=== PATIENT | male | born 1940 | race Caucasian/White ===

== ENCOUNTER 2018-10-07 02:26 | Inpatient (IN) | payer MEDICARE ==
[~2018-10-07] VITALS: Ht 180.3 cm; Wt 90.7 kg
[2018-10-07] VITALS (7 sets, daily range): BP systolic 126–143; BP diastolic 74–83; Ht 180.3 cm; Wt 90.7 kg
[2018-10-07 03:30] LABS: APTT 49.2 SECONDS (22.8-39.4); INR 1.18 (0.85-1.17); PROTIME 14.5 SECONDS (11.6-15.0)
[2018-10-07 03:32] LABS: ALBUMIN 3.1 g/dL (3.4-5.0); ALKALINE PHOSPHATASE 45 U/L (46-116); ALT (SGPT) 28 U/L (10-68); BASOPHILS 0.1 % (0-2); BILIRUBIN - TOTAL 0.74 mg/dL (0.2-1.3); CALC OSMOLALITY 283 mosm/kg (275-300); CALCIUM 8.3 mg/dL (8.5-10.1); CARBON DIOXIDE 28.3 mmol/L (21.0-32.0); CHLORIDE - SERUM 103 mmol/L (98-107); CREATININE - SERUM 1.1 mg/dL (0.6-1.3); EOSINOPHILS 0 % (0-7); GLUCOSE 118 mg/dL (74-106); HEMATOCRIT 53.2 % (42.0-54.0); HEMOGLOBIN 17.5 g/dL (13.5-17.5); IMMATURE GRANULOCYTES 0.3 % (0-5); LYMPHOCYTES 6.5 % (15-50); MCH 28.8 pg (26.0-34.0); MCHC 32.9 g/dL (31.0-37.0); MCV 87.6 fL (80.0-100.0); MEAN PLATELET VOLUME 10.5 fL (7.4-10.4); MONOCYTES 1.1 % (2-11); PLATELET COUNT 72 10x3/uL (130-400); POTASSIUM - SERUM 4.8 mmol/L (3.5-5.1); PROTEIN - SERUM 6.6 g/dL (6.4-8.2); RBC 6.07 10x6/uL (4.20-6.10); RDW 15.9 % (11.5-14.5); SODIUM 140 mmol/L (136-145); UREA NITROGEN 23 mg/dL (7-18); WBC 7.1 10x3/uL (4.8-10.8); eGFR NON AFRICAN AMERICAN 68 mL/min (90-120)
[2018-10-07 03:51] LABS: PLATELET ESTIMATE DECREASED
[2018-10-07 03:52] LABS: CKMB 0.4 U/L (0.0-3.6); CREATINE KINASE 32 UL (21-232)
[2018-10-07 03:53] LABS: TROPONIN-I 0.064 ng/mL (0.000-0.060)
--- NOTE | 2018-10-07 06:15 | NUR ---
REPORT FROM AGUILA PT FROM [facility] SENT HERE FOR ELEVATED TROP OF 0.064 WELL OTHER DX. PT ON 2L NC HEPARIN GTT AT 900 UNITS PER HOUR TO RIGHT FORARM THAT WAS GOING WHEN ER RECEIVED PT FROM [facility]. AGUILA STATES THE TUBING AND MEDICATION WAS CHANGED OUT AT 0241 AND CONTINUED AT 900 UNITS THE LAB VALUE AT 0303 APTT 49.2 NOTED AGUILA FROM ER STATES NO CHANGE MADE TO HEPARIN GTT. WAITIN FOR ARRIVAL TO ROOM 7500
--- NOTE | 2018-10-07 07:41 | NUR ---
RESTING QUIETLY. ALERT AND ORIENTED. WILL WAIT FOR FAMILY TO DO ADMISSION ASSESSMENT. PTT ORDERED FOR BASE LINE FOR HEPARIN GTT.
[2018-10-07 08:24] LABS: CKMB 0.4 U/L (0.0-3.6); CREATINE KINASE 37 UL (21-232); TROPONIN-I 0.057 ng/mL (0.000-0.060)
--- NOTE | 2018-10-07 09:54 | NUR ---
Pt admitted to M2 this morning. He is noted to have a stage 2 pressure injury on his left buttock (sacral area). Area measures 2cm x 2cm. Recommendations: -mepilex dressing to protect area -turn/reposition every 2 hours while in bed -daily and as needed personal care for incontinence Wound care will continue monitoring.
--- NOTE | 2018-10-07 10:14 | NUR ---
ADMISSION ASSESSMENT DONE. 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 MERIPLEX DRESSING PLACED. IVELISSE MAT IN PLACED. BATH AND LINENS CHANGED BY CNAS.
--- NOTE | 2018-10-07 10:45 | NUR ---
HEPARIN GTT DC ORDERED.
[2018-10-07] MEDS ORDERED: CARBIDOPA-LEVO1 EAC2 PO (13:50)
[2018-10-07] MEDS ORDERED: NEURONTIN 300300 MG PO (13:53)
[2018-10-07] MEDS ORDERED: OMEPRAZOLE20 M1 PO (13:54)
[2018-10-07] MEDS ORDERED: SYMBICORT 16010.2 GM INH (13:55)
[2018-10-07] MEDS ORDERED: ACETAMINOPHEN325 MG PO (13:56)
[2018-10-07] MEDS ORDERED: VITAMIN D2000 UNIT PO (13:57)
[2018-10-07] MEDS ORDERED: PREDNISONE10 MG PO (13:58)
[2018-10-07] MEDS ORDERED: ASPIRIN325 MG PO (13:59)
[2018-10-07] MEDS ORDERED: REQUIP1 MG PO (13:59)
--- NOTE | 2018-10-07 15:20 | MORECARE ---
CASE MANAGEMENT DISCHARGE SUMMARY PATIENT: AMARI MENDEZ UNIT: [id number] ADM DATE: 10/07/18 AGE: 77 : 38 SEX: M ROOM/BED: D.2114 AUTHOR: FAYE MOSS PHYSICIAN: REFERRING PHYSICIAN: JORDYN MATA MD DATE OF SERVICE: 10/07/18 Discharge Plan Patient Name: AMARI MENDEZ Facility: [facility]:[place] : 1940 Planned Disposition: Anticipated Discharge Date: Discharge Date: Expected LOS: Initial Reviewer: [id number] Initial Review Date: 10/07/2018 Generated: 10/07/18 4:20 pm Comments DCP- Discharge Planning Updated by [email or web address]: Petra Handley on 10/07/18 2:[address] ATTEMPTED TO SEE PATIENT FOR ASSESSMENT, BUT HE WAS SLEEPING WILL TRY AGAIN AT A LATER TIME Patient Name: AMARI MENDEZ Page [id number] at 1520 All edits/amendments must be made on the electronic document DICTATION DATE: 10/07/18 1520 GENERAL PASSENGER AGENT: NEAL 10/07/18 1520 RPT#: [id number] DC DATE: STATUS: ADM IN [facility] [address] [place] [address] END OF REPORT
[2018-10-07 16:46] LABS: CKMB 0.5 U/L (0.0-3.6); CREATINE KINASE 62 UL (21-232); TROPONIN-I 0.049 ng/mL (0.000-0.060)
--- NOTE | 2018-10-07 19:21 | NUR ---
RESUMED CARE OF PT, LYING IN BED RESPIRATIONS EVEN AND UNLABORED ON 2LPM VIA NC. RIGHT FOREARM SALINE LOCKED. 90 SR ON TELEMETRY. CALL LIGHT IN REACH. SEE NURSE ASSESSMENT.
[2018-10-07 21:24] LABS: CKMB 0.4 U/L (0.0-3.6); CREATINE KINASE 60 UL (21-232)
[2018-10-07 21:26] LABS: TROPONIN-I 0.061 ng/mL (0.000-0.060)
[2018-10-08 01:05] VITALS: BP 124/71
[2018-10-08 05:36] VITALS: BP 126/67
[2018-10-08 05:40] LABS: BASOPHILS 0.1 % (0-2); EOSINOPHILS 0 % (0-7); HEMATOCRIT 50.3 % (42.0-54.0); HEMOGLOBIN 16.8 g/dL (13.5-17.5); IMMATURE GRANULOCYTES 0.2 % (0-5); LYMPHOCYTES 8.2 % (15-50); MCH 29.1 pg (26.0-34.0); MCHC 33.4 g/dL (31.0-37.0); MEAN PLATELET VOLUME 11.1 fL (7.4-10.4); MONOCYTES 2.9 % (2-11); NEUTROPHILS 88.6 % (40-80); PLATELET COUNT 85 10x3/uL (130-400); RBC 5.78 10x6/uL (4.20-6.10); RDW 16.2 % (11.5-14.5)
[2018-10-08 05:45] LABS: WBC 9.2 10x3/uL (4.8-10.8)
[2018-10-08 05:53] LABS: ALBUMIN 2.8 g/dL (3.4-5.0); ANION GAP 14.7 mmol/L (8-16); BILIRUBIN - TOTAL 0.54 mg/dL (0.2-1.3); CALCIUM 8.3 mg/dL (8.5-10.1); CARBON DIOXIDE 23.3 mmol/L (21.0-32.0); CREATININE - SERUM 1.3 mg/dL (0.6-1.3)
--- NOTE | 2018-10-08 07:30 | NUR ---
ASSESSMENT COMPLETED. TELEMERTY SHOWS SR. O2 AT 2 L/M PER NC. RIGHT FA SL. PT USES URINAL. UP IN CHAIR PER PT.
[2018-10-08 08:06] VITALS: BP 128/77
[2018-10-08 11:45] VITALS: BP 122/72
--- NOTE | 2018-10-08 15:46 | NUR ---
Rehab Prescreening Consult recieved and the chart has been reviewed. He is a new admit from [facility]. He has a CTA with PE protocol ordered and pending. Rehab will follow. Gayatri Enriquez RN Clinical Liaison, Rehab
--- NOTE | 2018-10-08 15:50 | NUR ---
I have reviewed this patient and I concur with the Shift Assessment completed by the Licensed Practical Nurse today this shift.
[2018-10-08 15:56] VITALS: BP 123/71
--- NOTE | 2018-10-08 16:59 | MORECARE ---
CASE MANAGEMENT DISCHARGE SUMMARY PATIENT: AMARI MENDEZ UNIT: [id number] ADM DATE: 10/07/18 AGE: 77 : 38 SEX: M ROOM/BED: D.2114 AUTHOR: FAYE MOSS PHYSICIAN: REFERRING PHYSICIAN: JORDYN MATA MD DATE OF SERVICE: 10/08/18 Discharge Plan Patient Name: AMARI MENDEZ Facility: [facility]:[place] : 1940 Planned Disposition: Home with Home Health Anticipated Discharge Date: Discharge Date: Expected LOS: Initial Reviewer: [id number] Initial Review Date: 10/07/2018 Generated: 10/08/18 5:59 pm Comments DCP- Discharge Planning Updated by [email or web address]: Petra Handley on 10/07/18 2:[address] ATTEMPTED TO SEE PATIENT FOR ASSESSMENT, BUT HE WAS SLEEPING WILL TRY AGAIN AT A LATER TIME Coverage Notice Reviewer: [email or web address] Colton Hernandez Notice Issued Date-Time: 10/08/2018 16:55 Notice Type: IM Discharge Notice Notice Delivered To: Patient Relationship to Patient: Speech Assistant Name: Delivery Method: HAND - Hand Delivered Mai Days: Prior Verbal Notification: Recipient Understood Notice: Yes Recipient Signature: Yes Med Rec Note Co-signed by Attending: Coverage Notice Comment: [facility] Last DP export: 10/07/18 2:20 p Patient Name: AMARI MENDEZ Page 66425 at 1659 All edits/amendments must be made on the electronic document DICTATION DATE: 10/08/181657 EXPERIENCE PLANNING STRATEGIST: NEAL 10/08/181657 RPT#: [id number] DC DATE: STATUS: ADM IN [facility] [address] [place] [address] END OF REPORT
--- NOTE | 2018-10-08 17:08 | MORECARE ---
CASE MANAGEMENT DISCHARGE SUMMARY PATIENT: AMARI MENDEZ UNIT: [id number] ADM DATE: 10/07/18 AGE: 77 : 38 SEX: M ROOM/BED: D.0924 AUTHOR: AJAY,DOC PHYSICIAN: REFERRING PHYSICIAN: JORDYN MATA MD DATE OF SERVICE: 10/08/18 Discharge Plan Patient Name: AMARI MENDEZ Facility: [facility]:[place] : 1940 Planned Disposition: Home with Home Health Anticipated Discharge Date: Discharge Date: Expected LOS: Initial Reviewer: [email or web address] Initial Review Date: 10/07/2018 Generated: 10/08/18 6:08 pm Comments DCP- Discharge Planning Updated by [email or web address]: William Hernandez on 10/08/18 4:[address] Patient Name: AMARI MENDEZ Encounter No: [id number] : 1940 Primary Insurance: MEDICARE A & B Anticipated DC Date: Planned Disposition: Home with Home Health External Planned Provider: [facility] DCP follow-up note: CM RECEIVED ORDER FOR INPATIENT REHAB PRESCREENING. CM MET WITH PT IN ROOM TO DISCUSS DISCHARGE PLANNING AND NEEDS. PT REPORTS LIVING AT HOME DEPENDENT ON HIS DAUGHTER IN LAW WHO ASSISTS WITH BATH, TRANFERS AND TOILETING. PT HAS NEBULIZER, HOSPITAL BED, ROLLING WALKER FROM [facility] [employer]. PT HAS [facility], THEY HAVE NOT YET STARTED THERAPY BUT WERE SUPPOSED TO SEE PT BUT HE GOT SICK AND HAD TO COME BACK TO THE HOSPITAL. CM DISCUSSED AVAILABILITY OF HOME HEALTH, REHAB SERVICES AND MEDICAL EQUIPMENT. PT DENIES NEED OF INPATIENT OR DETENTION THERAPY SERVICES INFORMING CM HE IS GOING HOME AND [facility] AND COME TO THE HOUSE. PT REPORTS HE RECEIVES GOOD CARE FROM HIS FAMILY AND WILL RETURN HOME WITH THEM. PT REPORTS HIS SON OR DAUGHTER IN LAW WILL PICK HIM UP FOR DISCHARGE HOME. CM PROVIDED PT WITH CHOICE LISTING FOR HOME HEALTH, PT SIGNED CHOICE FOR [facility]. PT DECLINES REHAB, WANTS TO GO HOME WITH FAMILY AND [facility] RESUMPTION. FOR DISCHARGE, NOTIFY [facility], , FAX DISCHARGE INFORMATION TO [facility] AT [phone]. William Hernandez, CASE MANAGEMENT DCP- Discharge Planning Updated by [email or web address]: Petra Handley on 10/07/18 2:[address] ATTEMPTED TO SEE PATIENT FOR ASSESSMENT, BUT HE WAS SLEEPING WILL TRY AGAIN AT A LATER TIME Coverage Notice Reviewer: [id number] - William Hernandez Notice Issued Date-Time: 10/08/2018 16:55 Notice Type: IM Discharge Notice Notice Delivered To: Patient Relationship to Patient: Tubing Mill Setter Name: Delivery Method: HAND - Hand Delivered Mai Days: Prior Verbal Notification: Recipient Understood Notice: Yes Recipient Signature: Yes Med Rec Note Co-signed by Attending: Coverage Notice Comment: [facility] Last DP export: 10/08/18 3:59 pm Patient Name: AMARI MENDEZ Page [id number] at 1708 All edits/amendments must be made on the electronic document DICTATION DATE: 10/08/181706 FIRER AUTOMATIC STOKER: NEAL 10/08/181706 RPT#: [id number] DC DATE: STATUS: ADM IN [facility] [address] [place] [address] END OF REPORT
--- NOTE | 2018-10-08 19:04 | NUR ---
RECIEVED RESTING IN BED WITH EYES OPEN. ALERT AND ORIENTED. SPEECH IS LOW AND ALMOST A WHISPER. TREMORS IN HANDS. IV X2 TO LEFT FA SL.. NO EDEMA OBSERVED. FEET ARE FLOATED ON PILLOW. VIEJAS. REQUIRES TOTAL CARE. DENEIS ANY PAIN AT THIS TIME.
[2018-10-08 20:00] VITALS: BP 132/84
[2018-10-09] VITALS: BP 115/76
[2018-10-09 01:12] VITALS: BP 117/74
--- NOTE | 2018-10-09 08:22 | NUR ---
DEVI MARES FOR DR MATA NOTIFIED OF PE. NEW ORDERS GIVEN.
[2018-10-09 08:35] VITALS: BP 118/71
--- NOTE | 2018-10-09 10:03 | NUR ---
DUODERM DRSG APPLIED TO STAGE 2 LEFT BUTTOKS. BED ALARM ON. WILL CONT. PLAN OF CARE.
[2018-10-09 11:54] VITALS: BP 124/70
[2018-10-09 16:46] VITALS: BP 124/75
--- NOTE | 2018-10-09 19:43 | NUR ---
RECIEVED UP IN BED WITH EYES CLOSED. EASILY AROUSES WITH VERBAL STIMULI. ORIENTED X4. IV X 2 TO LEFT FA. SPEECH IS LOW TONE AND HARD TO UNDERSTAND. LONE PINE. DENIES ANY NEEDS AT THIS TIME.
[2018-10-09 20:00] VITALS: BP 132/81
[2018-10-10 04:30] VITALS: BP 113/68
[2018-10-10 06:01] LABS: BASOPHILS 0 % (0-2); EOSINOPHILS 0 % (0-7); HEMATOCRIT 50.7 % (42.0-54.0); HEMOGLOBIN 16.7 g/dL (13.5-17.5); IMMATURE GRANULOCYTES 0.3 % (0-5); LYMPHOCYTES 4.9 % (15-50); MCH 28.9 pg (26.0-34.0); MCHC 32.9 g/dL (31.0-37.0); MCV 87.9 fL (80.0-100.0); MEAN PLATELET VOLUME 11.1 fL (7.4-10.4); MONOCYTES 5.3 % (2-11); NEUTROPHILS 89.5 % (40-80); PLATELET COUNT 76 10x3/uL (130-400); RBC 5.77 10x6/uL (4.20-6.10); RDW 16.2 % (11.5-14.5); WBC 12.2 10x3/uL (4.8-10.8)
[2018-10-10 06:29] LABS: ANION GAP 9.7 mmol/L (8-16); CALCIUM 8.2 mg/dL (8.5-10.1); CARBON DIOXIDE 26.9 mmol/L (21.0-32.0); CREATININE - SERUM 1.1 mg/dL (0.6-1.3); POTASSIUM - SERUM 4.6 mmol/L (3.5-5.1)
[2018-10-10 08:30] VITALS: BP 124/80
--- NOTE | 2018-10-10 09:39 | NUR ---
ASSISTED UP TO CHAIR WITH PT ASSIST. WILL CONT. PLAN OF CARE.
--- NOTE | 2018-10-10 11:42 | NUR ---
URINE SPECIMEN COLLECTED AND TAKEN TO LAB. WILL MONITOR.
[2018-10-10 12:09] VITALS: BP 130/74
[2018-10-10 12:14] LABS: APPEARANCE CLEAR (CLEAR); BILIRUBIN NEGATIVE (NEGATIVE); COLOR YELLOW (YELLOW); GLUCOSE 50 mg/dL (NEGATIVE); KETONE NEGATIVE (NEGATIVE); NITRITE NEGATIVE (NEGATIVE); PROTEIN 1+ mg/dL (NEGATIVE); UROBILINOGEN NORMAL (NORMAL)
[2018-10-10 15:59] VITALS: BP 120/72
--- NOTE | 2018-10-10 18:53 | MORECARE ---
CASE MANAGEMENT DISCHARGE SUMMARY PATIENT: AMARI MENDEZ UNIT: [id number] ADM DATE: 10/07/18 AGE: 77 : 38 SEX: M ROOM/BED: D.6244 AUTHOR: AJAY,DOC PHYSICIAN: REFERRING PHYSICIAN: JORDYN MATA MD DATE OF SERVICE: 10/10/18 Discharge Plan Patient Name: AMARI MENDEZ Facility: [facility]:[place] : 1940 Planned Disposition: Home with Home Health Anticipated Discharge Date: Discharge Date: Expected LOS: Initial Reviewer: [email or web address] Initial Review Date: 10/07/2018 Generated: 10/10/18 7:53 pm Comments DCP- Discharge Planning Updated by [email or web address]: Barbi Gallo on 10/10/18 5:[address] PRIMARY NURSE, [place], REPORTS DR MATA SPOKE WITH THE PATIENT AND HIS FAMILY DURING ROUNDS TODAY. HE RECOMMENDS ACUTE REHAB. THE FAMILY WOULD LIKE [facility] IN [place], [place]. NASAL OXYGEN INCREASED TO 3/L VIA N/C. WBC INCREASING. PT IS ON STEROIDS. HOWEVER HIS CXR LOOKS WORSE PER MD NOTES. PATIENT IS RECEIVING PHYSICAL THERAPY. REQUIRES MODERATE ASSIST. AMBULATED 3FT W/ 40% ASSIST. OT EVAL ORDERED. CM TO FOLLOW TO ASSIST IS APPROPRIATE. DCP- Discharge Planning Updated by [id number]: William Hernandez on 10/08/18 4:[address] Patient Name: AMARI MENDEZ Encounter No: [id number] : 1940 Primary Insurance: MEDICARE A & B Anticipated DC Date: Planned Disposition: Home with Home Health External Planned Provider: [facility] DCP follow-up note: CM RECEIVED ORDER FOR INPATIENT REHAB PRESCREENING. CM MET WITH PT IN ROOM TO DISCUSS DISCHARGE PLANNING AND NEEDS. PT REPORTS LIVING AT HOME DEPENDENT ON HIS DAUGHTER IN LAW WHO ASSISTS WITH BATH, TRANFERS AND TOILETING. PT HAS NEBULIZER, HOSPITAL BED, ROLLING WALKER FROM [facility] [employer]. PT HAS [facility], THEY HAVE NOT YET STARTED THERAPY BUT WERE SUPPOSED TO SEE PT BUT HE GOT SICK AND HAD TO COME BACK TO THE HOSPITAL. CM DISCUSSED AVAILABILITY OF HOME HEALTH, REHAB SERVICES AND MEDICAL EQUIPMENT. PT DENIES NEED OF INPATIENT OR SENIOR LIVING THERAPY SERVICES INFORMING CM HE IS GOING HOME AND [facility] AND COME TO THE HOUSE. PT REPORTS HE RECEIVES GOOD CARE FROM HIS FAMILY AND WILL RETURN HOME WITH THEM. PT REPORTS HIS SON OR DAUGHTER IN LAW WILL PICK HIM UP FOR DISCHARGE HOME. CM PROVIDED PT WITH CHOICE LISTING FOR HOME HEALTH, PT SIGNED CHOICE FOR [facility]. PT DECLINES REHAB, WANTS TO GO HOME WITH FAMILY AND [facility] RESUMPTION. FOR DISCHARGE, NOTIFY [facility], , FAX DISCHARGE INFORMATION TO [facility] AT [phone]. William Hernandez, CASE MANAGEMENT DCP- Discharge Planning Updated by [email or web address]: Petra Handley on 10/07/18 2:[address] ATTEMPTED TO SEE PATIENT FOR ASSESSMENT, BUT HE WAS SLEEPING WILL TRY AGAIN AT A LATER TIME Coverage Notice Reviewer: [id number] - William Hernandez Notice Issued Date-Time: 10/08/2018 16:55 Notice Type: IM Discharge Notice Notice Delivered To: Patient Relationship to Patient: Tile Fitter Name: Delivery Method: HAND - Hand Delivered Mai Days: Prior Verbal Notification: Recipient Understood Notice: Yes Recipient Signature: Yes Med Rec Note Co-signed by Attending: Coverage Notice Comment: [facility] Last DP export: 10/08/18 4:08 pm Patient Name: AMARI MENDEZ Page [id number] at 1853 All edits/amendments must be made on the electronic document DICTATION DATE: 10/10/181851 RETAIL ATTENDANT: NEAL 10/10/181851 RPT#: [id number] DC DATE: STATUS: ADM IN [facility] [address] [place] [address] END OF REPORT
--- NOTE | 2018-10-10 19:04 | NUR ---
RECIEVED UP IN BED WITH EYES CLOSED. EASILY AROUSES WITH VERBAL STIMULI. ORIENTED X4. CONTINUES TO BE TOTAL CARE WITH EPISODES OF INCONTINENCE. IV TO RIGHT FA AND TELEMETRY IN PLACE. DENIES ANY NEEDS AT THIS TIME.
[2018-10-10 20:31] VITALS: BP 117/73
[2018-10-11 00:23] VITALS: BP 121/71
[2018-10-11 05:30] VITALS: BP 130/76
[2018-10-11 06:31] LABS: BASOPHILS 0 % (0-2); EOSINOPHILS 0 % (0-7); HEMATOCRIT 49.7 % (42.0-54.0); HEMOGLOBIN 16.5 g/dL (13.5-17.5); IMMATURE GRANULOCYTES 0.4 % (0-5); LYMPHOCYTES 4.8 % (15-50); MCH 29.4 pg (26.0-34.0); MCHC 33.2 g/dL (31.0-37.0); MCV 88.4 fL (80.0-100.0); MEAN PLATELET VOLUME 10.9 fL (7.4-10.4); MONOCYTES 4.2 % (2-11); NEUTROPHILS 90.6 % (40-80); PLATELET COUNT 68 10x3/uL (130-400); RBC 5.62 10x6/uL (4.20-6.10); WBC 10.4 10x3/uL (4.8-10.8)
[2018-10-11 06:52] LABS: ANION GAP 12.1 mmol/L (8-16); CALCIUM 8.1 mg/dL (8.5-10.1); CARBON DIOXIDE 28.5 mmol/L (21.0-32.0); CREATININE - SERUM 1.2 mg/dL (0.6-1.3); POTASSIUM - SERUM 4.6 mmol/L (3.5-5.1)
--- NOTE | 2018-10-11 07:30 | NUR ---
RECEIVED PT IN BED EYES CLOSED RESP UNLABORED SKIN COLOR WNL NAD NOTED
[2018-10-11 08:03] VITALS: BP 116/66
[2018-10-11 08:38] LABS: PLATELET ESTIMATE DECREASED
--- NOTE | 2018-10-11 11:17 | NUR ---
Rehab Note- Per CM note, the patient and family plan to discharge home with home health. Lives in [place]. Thank you for this referral! Angeline Coronel RN CLinical Liaison, [facility] Rehab
--- NOTE | 2018-10-11 11:57 | NUR ---
FSBS 133
[2018-10-11 12:01] VITALS: BP 122/80
--- NOTE | 2018-10-11 14:58 | NUR ---
Nutrition follow-up: Diet: ADA mechanical soft with ground soft meat PO intake ~75% of meals Labs reviewed Wt: 199# +BM RDN following.
[2018-10-11 15:40] VITALS: BP 100/55
--- NOTE | 2018-10-11 19:05 | NUR ---
RECIEVED UP IN BED WITH EYES CLOSED. IV TO LEFT FA WITH VANCOMYCIN INFUSING. REMAINS ON THICKEN LIQUIDS. FLUIDS OFFERED AND ACCEPTED. DENIES ANY NEEDS AT THIS TIME.
[2018-10-11 21:26] VITALS: BP 116/76
[2018-10-12 00:29] VITALS: BP 106/72
[2018-10-12 06:22] VITALS: BP 115/66
[2018-10-12 06:33] LABS: CALC OSMOLALITY 279 mosm/kg (275-300); CALCIUM 8.2 mg/dL (8.5-10.1); CARBON DIOXIDE 27.5 mmol/L (21.0-32.0); CHLORIDE - SERUM 103 mmol/L (98-107); GLUCOSE 125 mg/dL (74-106); POTASSIUM - SERUM 4.7 mmol/L (3.5-5.1); SODIUM 137 mmol/L (136-145); UREA NITROGEN 26 mg/dL (7-18); eGFR NON AFRICAN AMERICAN 76 mL/min (90-120)
[2018-10-12 06:57] LABS: HEMATOCRIT 49.5 % (42.0-54.0); HEMOGLOBIN 16.3 g/dL (13.5-17.5); MCH 29.2 pg (26.0-34.0); MCHC 32.9 g/dL (31.0-37.0); MCV 88.7 fL (80.0-100.0); MEAN PLATELET VOLUME 11.1 fL (7.4-10.4); PLATELET COUNT 65 10x3/uL (130-400); RBC 5.58 10x6/uL (4.20-6.10)
[2018-10-12 06:58] LABS: WBC 7.2 10x3/uL (4.8-10.8)
[2018-10-12 07:47] LABS: LYMPHOCYTES 7 % (15-50); MONOCYTES 4 % (2-11); NEUTROPHILS 85 % (40-80); PLATELET ESTIMATE DECREASED
--- NOTE | 2018-10-12 07:52 | NUR ---
assessment COMPLETED. ALERT AND ORIENTED. TELEMERTY SHOWS SR. O2 AT 3LM PER NC.DENIES ANY NEEDS AT PRESENT TIME. SR UP WITH CALL LIGHT IN REACH
[2018-10-12 09:52] VITALS: BP 129/76
--- NOTE | 2018-10-12 14:11 | NUR ---
UP IN BEDSIDE CHAIR. DENIES ANY NEEDS. CALL LIGHT IN REACH. TELEMERTY SHOWS SR
--- NOTE | 2018-10-12 16:48 | NUR ---
AGREE WITH LABORER CHEESEMAKING'S ASSESSMENT.
--- NOTE | 2018-10-12 17:57 | NUR ---
LYING QUIETLY WITH EYES CLOSED. TELEMERTY SHOWS SR 74. NO NEEDS NOTED. RESP REG AND NON LABORED WITH O2 AT 3 L/M. SR UP WITH CALL LIGHT IN REACH
--- NOTE | 2018-10-12 19:04 | NUR ---
RECIEVED UP IN BED WITH EYES CLOSED. EASILY AROUSES WITH VERBAL STIMULI. ORIENTED X4. IV TO RIGHT FA WITH LEVAQUIN INFUSING. TELEMETRY IN PLACE. DENIES ANY NEEDS.
[2018-10-12 21:01] VITALS: BP 100/63
[2018-10-13 01:06] VITALS: BP 103/53
[2018-10-13 06:05] VITALS: BP 133/79
[2018-10-13 07:22] LABS: BASOPHILS 0 % (0-2); EOSINOPHILS 0 % (0-7); HEMATOCRIT 49.8 % (42.0-54.0); HEMOGLOBIN 16.6 g/dL (13.5-17.5); IMMATURE GRANULOCYTES 0.4 % (0-5); LYMPHOCYTES 6.3 % (15-50); MCH 29.1 pg (26.0-34.0); MCHC 33.3 g/dL (31.0-37.0); MCV 87.4 fL (80.0-100.0); MEAN PLATELET VOLUME 10.2 fL (7.4-10.4); MONOCYTES 3.6 % (2-11); NEUTROPHILS 89.7 % (40-80); PLATELET COUNT 69 10x3/uL (130-400); RDW 15.9 % (11.5-14.5); WBC 7.9 10x3/uL (4.8-10.8)
[2018-10-13 07:39] LABS: CALC OSMOLALITY 280 mosm/kg (275-300); CARBON DIOXIDE 27.2 mmol/L (21.0-32.0); CHLORIDE - SERUM 103 mmol/L (98-107); GLUCOSE 124 mg/dL (74-106); POTASSIUM - SERUM 4.8 mmol/L (3.5-5.1); SODIUM 138 mmol/L (136-145); UREA NITROGEN 24 mg/dL (7-18); eGFR NON AFRICAN AMERICAN 76 mL/min (90-120)
[2018-10-13 09:38] VITALS: BP 109/54
--- NOTE | 2018-10-13 10:11 | NUR ---
ASSISTED UP TO CHAIR WITH PT ASSIST. WILL CONT. PLAN OF CARE.
[2018-10-13 13:21] VITALS: BP 115/68
--- NOTE | 2018-10-13 14:10 | MORECARE ---
CASE MANAGEMENT DISCHARGE SUMMARY PATIENT: AMARI MENDEZ UNIT: [id number] ADM DATE: 10/07/18 AGE: 77 : 38 SEX: M ROOM/BED: D.2114 AUTHOR: AJAY,DOC PHYSICIAN: REFERRING PHYSICIAN: JORDYN MATA MD DATE OF SERVICE: 10/13/18 Discharge Plan Patient Name: AMARI MENDEZ Facility: [facility]:[place] : 1940 Planned Disposition: Home with Home Health Anticipated Discharge Date: Discharge Date: Expected LOS: Initial Reviewer: [email or web address] Initial Review Date: 10/07/2018 Generated: 10/13/18 3:10 pm Comments DCP- Discharge Planning Updated by [id number]: William Hernandez on 10/13/18 1:[address] Patient Name: AMARI MENDEZ Encounter No: [id number] : 1940 Primary Insurance: MEDICARE A & B Anticipated DC Date: Planned Disposition: INPATIENT REHAB External Planned Provider: TO BE DETERMINED DCP follow-up note: CM SPOKE TO DR. SUTTON WHO INFORMED CM THAT PT WAS ABOUT READY TO DISCHARGE AND MAY BE FROM A REHAB IN [place]. CM SPOKE TO PT IN ROOM WHO REPORTS HE WAS AT HOME PRIOR TO HOSPITAL STAY AND THAT HIS SON MAY WANT HIM TO GO TO REHAB CLOSER TO HOME IT IS TOO FAR FOR THEM TO DRIVE HERE. PT ASKED CM TO CALL HIS SON, MINNIE OR DAUGHTER IN LAW, MICHAEL, TO DISCUSS DISCHARGE PLAN. PT REPORTS HE STILL REALLY WANTS TO GO HOME AND WILL ACCEPT HOME HEALTH WITH [facility] BUT HIS FAMILY WILL BE MAKING THE DECISION REGARDING REHAB. CM CALLED BILL AND MICHAEL MENDEZ, , LEFT DETAILED MESSAGE ASKING FOR RETURN CALL SOON POSSIBLE TO DISCUSS DISCHARGE PLANNING. William Hernandez, CASE MANAGEMENT DCP- Discharge Planning Updated by [email or web address]: Barbi Gallo on 10/10/18 5:[address] PRIMARY NURSE, [place], REPORTS DR MATA SPOKE WITH THE PATIENT AND HIS FAMILY DURING ROUNDS TODAY. HE RECOMMENDS ACUTE REHAB. THE FAMILY WOULD LIKE [facility] IN [place], [place]. NASAL OXYGEN INCREASED TO 3/L VIA N/C. WBC INCREASING. PT IS ON STEROIDS. HOWEVER HIS CXR LOOKS WORSE PER MD NOTES. PATIENT IS RECEIVING PHYSICAL THERAPY. REQUIRES MODERATE ASSIST. AMBULATED 3FT W/ 40% ASSIST. OT EVAL ORDERED. CM TO FOLLOW TO ASSIST IS APPROPRIATE. DCP- Discharge Planning Updated by [email or web address]: William Hernandez on 10/08/18 4:[address] Patient Name: AMARI MENDEZ Encounter No: [id number] : 1940 Primary Insurance: MEDICARE A & B Anticipated DC Date: Planned Disposition: Home with Home Health External Planned Provider: [facility] DCP follow-up note: CM RECEIVED ORDER FOR INPATIENT REHAB PRESCREENING. CM MET WITH PT IN ROOM TO DISCUSS DISCHARGE PLANNING AND NEEDS. PT REPORTS LIVING AT HOME DEPENDENT ON HIS DAUGHTER IN LAW WHO ASSISTS WITH BATH, TRANFERS AND TOILETING. PT HAS NEBULIZER, HOSPITAL BED, ROLLING WALKER FROM [facility]. PT HAS [facility], THEY HAVE NOT YET STARTED THERAPY BUT WERE SUPPOSED TO SEE PT BUT HE GOT SICK AND HAD TO COME BACK TO THE HOSPITAL. CM DISCUSSED AVAILABILITY OF HOME HEALTH, REHAB SERVICES AND MEDICAL EQUIPMENT. PT DENIES NEED OF INPATIENT OR INTERMEDIATE THERAPY SERVICES INFORMING CM HE IS GOING HOME AND [facility] AND COME TO THE HOUSE. PT REPORTS HE RECEIVES GOOD CARE FROM HIS FAMILY AND WILL RETURN HOME WITH THEM. PT REPORTS HIS SON OR DAUGHTER IN LAW WILL PICK HIM UP FOR DISCHARGE HOME. CM PROVIDED PT WITH CHOICE LISTING FOR HOME HEALTH, PT SIGNED CHOICE FOR [facility] PT DECLINES REHAB, WANTS TO GO HOME WITH FAMILY AND [facility] RESUMPTION. FOR DISCHARGE, NOTIFY [facility], , FAX DISCHARGE INFORMATION TO [facility] AT [phone]. William Hernandez, CASE MANAGEMENT DCP- Discharge Planning Updated by [id number]: Petra Handley on 10/07/18 2:[address] ATTEMPTED TO SEE PATIENT FOR ASSESSMENT, BUT HE WAS SLEEPING WILL TRY AGAIN AT A LATER TIME Coverage Notice Reviewer: [id number] - William Hernandez Notice Issued Date-Time: 10/08/2018 16:55 Notice Type: IM Discharge Notice Notice Delivered To: Patient Relationship to Patient: Crystal Gazer Name: Delivery Method: HAND - Hand Delivered Mai Days: Prior Verbal Notification: Recipient Understood Notice: Yes Recipient Signature: Yes Med Rec Note Co-signed by Attending: Coverage Notice Comment: [facility] Last DP export: 10/10/18 5:53 pm Patient Name: AMARI MENDEZ Page [phone] at 1410 All edits/amendments must be made on the electronic document DICTATION DATE: 10/13/181408 BOMB LOADER: NEAL 10/13/181408 RPT#: [id number] DC DATE: STATUS: ADM IN [facility] [address] [place] [address] END OF REPORT
--- NOTE | 2018-10-13 14:44 | NUR ---
OT NOTE: BED MOB WITH MOD ASSIST; SIT TO STAND WITH MOD ASSIST; ABLE TO AMB WITH RW AND MOD ASSIST X 2 X APPROX 50 FT. MAX ASSIST TO JEREMI SOCKS...TREMORS WERE WORSE TODAY THAN YESTERDAY, MAKING ADLS MORE DIFFICULT. PT WANTED TO SIT UP IN CHAIR AND TOLERATED GREATER THAN 2 HRS. DELMY SANTO, OTR/L
--- NOTE | 2018-10-13 16:29 | NUR ---
OT NOTE: PT COMPLETED SIT TO STAND WITH SBA. PT COMPLETED BED MOB WITH MIN A. THANK YOU, VIRI ALMEIDA
--- NOTE | 2018-10-13 19:07 | NUR ---
RESUMED CARE OF PT, LYING IN BED RESPIRATIONS EVEN AND UNLABORED ON 3LPM VIA NC. RIGHT FOREARM SALINE LOCKED. 99 SR ON TELEMETRY. URINAL AT BEDSIDE, CALL LIGHT IN REACH. SEE NURSE ASSESSMENT.
[2018-10-13 20:00] VITALS: BP 119/74
[2018-10-14] VITALS: BP 106/64
[2018-10-14 04:30] VITALS: BP 109/71
[2018-10-14 05:44] LABS: BASOPHILS 0 % (0-2); EOSINOPHILS 0 % (0-7); HEMOGLOBIN 16.5 g/dL (13.5-17.5); IMMATURE GRANULOCYTES 0.2 % (0-5); LYMPHOCYTES 5.6 % (15-50); MEAN PLATELET VOLUME 10.7 fL (7.4-10.4); MONOCYTES 3.1 % (2-11); NEUTROPHILS 91.1 % (40-80); PLATELET COUNT 66 10x3/uL (130-400); RBC 5.68 10x6/uL (4.20-6.10); RDW 15.9 % (11.5-14.5); WBC 8.1 10x3/uL (4.8-10.8)
[2018-10-14 06:13] LABS: ANION GAP 11.4 mmol/L (8-16); CALCIUM 8.3 mg/dL (8.5-10.1); CARBON DIOXIDE 30.5 mmol/L (21.0-32.0); CREATININE - SERUM 1.1 mg/dL (0.6-1.3); POTASSIUM - SERUM 4.9 mmol/L (3.5-5.1)
[2018-10-14 08:03] VITALS: BP 128/67
[2018-10-14 08:14] LABS: PLATELET ESTIMATE DECREASED
[2018-10-14 11:53] VITALS: BP 131/64
--- NOTE | 2018-10-14 12:05 | NUR ---
OT NOTE: (LATE ENTRY...DOS 10/13/18) PT COMPLETED SIDE ROLLING USING RAILS WITH SBA. PT COMPLETED LUE AROM. THANK YOU, VIRI ALMEIDA
--- NOTE | 2018-10-14 12:44 | MORECARE ---
CASE MANAGEMENT DISCHARGE SUMMARY PATIENT: AMARI MENDEZ UNIT: [id number] ADM DATE: 10/07/18 AGE: 77 : 38 SEX: M ROOM/BED: D.2114 AUTHOR: AJAY,DOC PHYSICIAN: REFERRING PHYSICIAN: JORDYN MATA MD DATE OF SERVICE: 10/14/18 Discharge Plan Patient Name: AMARI MENDEZ Facility: [facility]:[place] : 1940 Planned Disposition: Home with Home Health Anticipated Discharge Date: 10/14/18 Discharge Date: Expected LOS: 7 Initial Reviewer: [id number] Initial Review Date: 10/07/2018 Generated: 10/14/18 1:44 pm Comments DCP- Discharge Planning Updated by [id number]: William Hernandez on 10/13/18 1:[address] Patient Name: AMARI MENDEZ Encounter No: [id number] : 1940 Primary Insurance: MEDICARE A & B Anticipated DC Date: Planned Disposition: INPATIENT REHAB External Planned Provider: TO BE DETERMINED DCP follow-up note: CM SPOKE TO DR. SUTTON WHO INFORMED CM THAT PT WAS ABOUT READY TO DISCHARGE AND MAY BE FROM A REHAB IN [place]. CM SPOKE TO PT IN ROOM WHO REPORTS HE WAS AT HOME PRIOR TO HOSPITAL STAY AND THAT HIS SON MAY WANT HIM TO GO TO REHAB CLOSER TO HOME IT IS TOO FAR FOR THEM TO DRIVE HERE. PT ASKED CM TO CALL HIS SON, MINNIE OR DAUGHTER IN LAW, MICHAEL, TO DISCUSS DISCHARGE PLAN. PT REPORTS HE STILL REALLY WANTS TO GO HOME AND WILL ACCEPT HOME HEALTH WITH [facility] BUT HIS FAMILY WILL BE MAKING THE DECISION REGARDING REHAB. CM CALLED BILL AND MICHAEL MENDEZ, , LEFT DETAILED MESSAGE ASKING FOR RETURN CALL SOON POSSIBLE TO DISCUSS DISCHARGE PLANNING. William Hernandez, CASE JACQUELIN DCP- Discharge Planning Updated by [id number]: Barbi Gallo on 10/10/18 5:[address] PRIMARY NURSE, EL[place], REPORTS DR MATA SPOKE WITH THE PATIENT AND HIS FAMILY DURING ROUNDS TODAY. HE RECOMMENDS ACUTE REHAB. THE FAMILY WOULD LIKE [facility] REHAB IN [place], [place]. NASAL OXYGEN INCREASED TO 3/L VIA N/C. WBC INCREASING. PT IS ON STEROIDS. HOWEVER HIS CXR LOOKS WORSE PER MD NOTES. PATIENT IS RECEIVING PHYSICAL THERAPY. REQUIRES MODERATE ASSIST. AMBULATED 3FT W/ 40% ASSIST. OT EVAL ORDERED. CM TO FOLLOW TO ASSIST IS APPROPRIATE. DCP- Discharge Planning Updated by [id number]: William Hernandez on 10/08/18 4:[address] Patient Name: AMARI MENDEZ Encounter No: [id number] : 1940 Primary Insurance: MEDICARE A & B Anticipated DC Date: Planned Disposition: Home with Home Health External Planned Provider: [facility] DCP follow-up note: CM RECEIVED ORDER FOR INPATIENT REHAB PRESCREENING. CM MET WITH PT IN ROOM TO DISCUSS DISCHARGE PLANNING AND NEEDS. PT REPORTS LIVING AT HOME DEPENDENT ON HIS DAUGHTER IN LAW WHO ASSISTS WITH BATH, TRANFERS AND TOILETING. PT HAS NEBULIZER, HOSPITAL BED, ROLLING WALKER FROM UNKNOWN [employer]. PT HAS [facility], THEY HAVE NOT YET STARTED THERAPY BUT WERE SUPPOSED TO SEE PT BUT HE GOT SICK AND HAD TO COME BACK TO THE HOSPITAL. CM DISCUSSED AVAILABILITY OF HOME HEALTH, REHAB SERVICES AND MEDICAL EQUIPMENT. PT DENIES NEED OF INPATIENT OR SENIOR LIVING THERAPY SERVICES INFORMING CM HE IS GOING HOME AND [facility] AND COME TO THE HOUSE. PT REPORTS HE RECEIVES GOOD CARE FROM HIS FAMILY AND WILL RETURN HOME WITH THEM. PT REPORTS HIS SON OR DAUGHTER IN LAW WILL PICK HIM UP FOR DISCHARGE HOME. CM PROVIDED PT WITH CHOICE LISTING FOR HOME HEALTH, PT SIGNED CHOICE FOR [facility]. PT DECLINES REHAB, WANTS TO GO HOME WITH FAMILY AND [facility]. FOR DISCHARGE, NOTIFY [facility], , FAX DISCHARGE INFORMATION TO [facility] AT [phone]. William Hernandez, CASE MANAGEMENT DCP- Discharge Planning Updated by [email or web address]: Petra Handley on 10/07/18 2:[address] ATTEMPTED TO SEE PATIENT FOR ASSESSMENT, BUT HE WAS SLEEPING WILL TRY AGAIN AT A LATER TIME Coverage Notice Reviewer: [id number] - William Hernandez Notice Issued Date-Time: 10/08/2018 16:55 Notice Type: Patient Choice Letter Notice Delivered To: Patient Relationship to Patient: Fisheries Inspector Name: Delivery Method: HAND - Hand Delivered Mai Days: Prior Verbal Notification: Recipient Understood Notice: Yes Recipient Signature: Yes Med Rec Note Co-signed by Attending: Coverage Notice Comment: [facility] Reviewer: [id number] - William David Notice Issued Date-Time: 10/14/2018 10:25 Notice Type: IM Discharge Notice Notice Delivered To: Family Member Relationship to Patient: Daughter in Law Fisheries Inspector Name: MICHAEL MENDEZ Delivery Method: HAND - Hand Delivered Mai Days: Prior Verbal Notification: Recipient Understood Notice: Yes Recipient Signature: Yes Med Rec Note Co-signed by Attending: Coverage Notice Comment: Last DP export: 10/13/18 1:10 pm Patient Name: AMARI MENDEZ Page 01024 at 1244 All edits/amendments must be made on the electronic document DICTATION DATE: 10/14/18 124 CATTLE PRODUCERS: NEAL 10/14/18 1244 RPT#: [id number] DC DATE: STATUS: ADM IN [facility] [address] [place] [address] END OF REPORT
--- NOTE | 2018-10-14 12:52 | MORECARE ---
CASE MANAGEMENT DISCHARGE SUMMARY PATIENT: AMARI MENDEZ UNIT: [id number] ADM DATE: 10/07/18 AGE: 77 : 38 SEX: M ROOM/BED: D.2114 AUTHOR: AJAY,DOC PHYSICIAN: REFERRING PHYSICIAN: JORDYN MATA MD DATE OF SERVICE: 10/14/18 Discharge Plan Patient Name: AMARI MENDEZ Facility: [facility]:[place] : 1940 Planned Disposition: Home with Home Health Anticipated Discharge Date: 10/14/18 Discharge Date: Expected LOS: 7 Initial Reviewer: [id number] Initial Review Date: 10/07/2018 Generated: 10/14/18 1:52 pm Comments DCP- Discharge Planning Updated by [email or web address]: William Hernandez on 10/13/18 1:[address] Patient Name: AMARI MENDEZ Encounter No: [id number] : 1940 Primary Insurance: MEDICARE A & B Anticipated DC Date: Planned Disposition: INPATIENT REHAB External Planned Provider: TO BE DETERMINED DCP follow-up note: CM SPOKE TO DR. SUTTON WHO INFORMED CM THAT PT WAS ABOUT READY TO DISCHARGE AND MAY BE FROM A REHAB IN [place]. CM SPOKE TO PT IN ROOM WHO REPORTS HE WAS AT HOME PRIOR TO HOSPITAL STAY AND THAT HIS SON MAY WANT HIM TO GO TO REHAB CLOSER TO HOME IT IS TOO FAR FOR THEM TO DRIVE HERE. PT ASKED CM TO CALL HIS SON, MINNIE OR DAUGHTER IN LAW, MICHAEL, TO DISCUSS DISCHARGE PLAN. PT REPORTS HE STILL REALLY WANTS TO GO HOME AND WILL ACCEPT HOME HEALTH WITH [facility] BUT HIS FAMILY WILL BE MAKING THE DECISION REGARDING REHAB. CM CALLED BILL AND MICHAEL MENDEZ, , LEFT DETAILED MESSAGE ASKING FOR RETURN CALL SOON POSSIBLE TO DISCUSS DISCHARGE PLANNING. William Hernandez, CASE JACQUELIN DCP- Discharge Planning Updated by [email or web address]: Barbi Gallo on 10/10/18 5:[address] PRIMARY NURSE, EL[place], REPORTS DR MATA SPOKE WITH THE PATIENT AND HIS FAMILY DURING ROUNDS TODAY. HE RECOMMENDS ACUTE REHAB. THE FAMILY WOULD LIKE [facility] REHAB IN [place], [place]. NASAL OXYGEN INCREASED TO 3/L VIA N/C. WBC INCREASING. PT IS ON STEROIDS. HOWEVER HIS CXR LOOKS WORSE PER MD NOTES. PATIENT IS RECEIVING PHYSICAL THERAPY. REQUIRES MODERATE ASSIST. AMBULATED 3FT W/ 40% ASSIST. OT EVAL ORDERED. CM TO FOLLOW TO ASSIST IS APPROPRIATE. DCP- Discharge Planning Updated by [email or web address]: William Hernandez on 10/08/18 4:[address] Patient Name: AMARI MENDEZ Encounter No: [id number] : 1940 Primary Insurance: MEDICARE A & B Anticipated DC Date: Planned Disposition: Home with Home Health External Planned Provider: [employer] [facility] DCP follow-up note: CM RECEIVED ORDER FOR INPATIENT REHAB PRESCREENING. CM MET WITH PT IN ROOM TO DISCUSS DISCHARGE PLANNING AND NEEDS. PT REPORTS LIVING AT HOME DEPENDENT ON HIS DAUGHTER IN LAW WHO ASSISTS WITH BATH, TRANFERS AND TOILETING. PT HAS NEBULIZER, HOSPITAL BED, ROLLING WALKER FROM UNKNOWN [employer]. PT HAS [facility], THEY HAVE NOT YET STARTED THERAPY BUT WERE SUPPOSED TO SEE PT BUT HE GOT SICK AND HAD TO COME BACK TO THE HOSPITAL. CM DISCUSSED AVAILABILITY OF HOME HEALTH, REHAB SERVICES AND MEDICAL EQUIPMENT. PT DENIES NEED OF INPATIENT OR SNF THERAPY SERVICES INFORMING CM HE IS GOING HOME AND [facility] AND COME TO THE HOUSE. PT REPORTS HE RECEIVES GOOD CARE FROM HIS FAMILY AND WILL RETURN HOME WITH THEM. PT REPORTS HIS SON OR DAUGHTER IN LAW WILL PICK HIM UP FOR DISCHARGE HOME. CM PROVIDED PT WITH CHOICE LISTING FOR HOME HEALTH, PT SIGNED CHOICE FOR [facility] [facility]. PT DECLINES REHAB, WANTS TO GO HOME WITH FAMILY AND [facility] [facility]. FOR DISCHARGE, NOTIFY [employer] [facility], , FAX DISCHARGE INFORMATION TO [employer] AT [phone]. William Hernandez, CASE MANAGEMENT DCP- Discharge Planning Updated by [email or web address]: Petra Handley on 10/07/18 2:[address] ATTEMPTED TO SEE PATIENT FOR ASSESSMENT, BUT HE WAS SLEEPING WILL TRY AGAIN AT A LATER TIME External Providers [facility] Next Contact Date: 10/14/2018 Service Request Date: Service Type: Resolution: Reviewer: Comments: Coverage Notice Reviewer: [id number] - William Hernandez Notice Issued Date-Time: 10/08/2018 16:55 Notice Type: Patient Choice Letter Notice Delivered To: Patient Relationship to Patient: Air Intercept Controller Name: Delivery Method: HAND - Hand Delivered Mai Days: Prior Verbal Notification: Recipient Understood Notice: Yes Recipient Signature: Yes Med Rec Note Co-signed by Attending: Coverage Notice Comment: [facility] Reviewer: [id number] Colton Hernandez Notice Issued Date-Time: 10/14/2018 10:25 Notice Type: IM Discharge Notice Notice Delivered To: Family Member Relationship to Patient: Daughter in Law Air Intercept Controller Name: MICHAEL MENDEZ Delivery Method: HAND - Hand Delivered Mai Days: Prior Verbal Notification: Recipient Understood Notice: Yes Recipient Signature: Yes Med Rec Note Co-signed by Attending: Coverage Notice Comment: Last DP export: 10/14/18 11:44 am Patient Name: AMARI MENDEZ Page [id number] at 1252 All edits/amendments must be made on the electronic document DICTATION DATE: 10/14/18 1251 HOGSHEAD WEIGHER: NEAL 10/14/18 1251 RPT#: [id number] DC DATE: STATUS: ADM IN [facility] [address] [place] [address] END OF REPORT
--- NOTE | 2018-10-14 13:01 | NUR ---
OT NOTE: PT UP IN CHAIR; ATTEMPTED FEEDING BUT TREMORS MADE IT VERY DIFFICULT. DTR IN LAW WAS ASSISTING PT WITH FEEDING. SHE STATES THAT THAT SHE IS THE ONE WHO TAKES CARE OF HIM AT HOME. DISCUSSED NEED FOR REHAB AND BENEFITS, BUT DTR IN LAW STATES THAT HE WANTS TO GO HOME. SHE STATES THAT HE IS GOING TO BE DCD TODAY. DELMY SANTO, OTR/L
--- NOTE | 2018-10-14 13:13 | MORECARE ---
CASE MANAGEMENT DISCHARGE SUMMARY PATIENT: AMARI MENDEZ UNIT: [id number] ADM DATE: 10/07/18 AGE: 77 : 38 SEX: M ROOM/BED: D.2114 AUTHOR: AJAY,DOC PHYSICIAN: REFERRING PHYSICIAN: JORDYN MATA MD DATE OF SERVICE: 10/14/18 Discharge Plan Patient Name: AMARI MENDEZ Facility: [facility]:[place] : 1940 Planned Disposition: Home with Home Health Anticipated Discharge Date: 10/14/18 Discharge Date: Expected LOS: 7 Initial Reviewer: [email or web address] Initial Review Date: 10/07/2018 Generated: 10/14/18 2:13 pm Comments DCP- Discharge Planning Updated by [email or web address]: William Hernandez on 10/14/18 12:[address] Patient Name: AMARI MENDEZ Encounter No: [id number] : 1940 Primary Insurance: MEDICARE A & B Anticipated DC Date: 10-14-2018 Planned Disposition: Home with Home Health External Planned Provider: [email or web address] [facility] DCP follow-up note: CM CALLED PT'S FAMILY AT HOME, , LEFT MESSAGE ASKING FOR RETURN CALL SOON POSSIBLE. CM SPOKE TO PT WHO INSISTS HE IS GOING HOME WITH [employer], REPORTS HIS DAUGHTER IN LAW, MICHAEL WILL BE HERE THIS MORNING TO PICK HIM UP. CM SPOKE TO MICHAEL AND PT IN ROOM, WENT OVER THERAPY NOTES AND RECOMMENDED REHAB PRIOR TO PT GOING HOME. PT REFUSES, MICHAEL REPORTS ABILITY TO CARE FOR PT AT HOME AND WANTS HOME HEALTH WITH [email or web address] TO RESUME. CM NOTIFIED [facility] ISBELL. CM NOTIFIED [facility], , FAXED HOSPITAL UPDATE TO [facility] AT [phone]. MARYCRUZ Rucker DCP- Discharge Planning Updated by [email or web address]: William Hernandez on 10/13/18 1:[address] Patient Name: AMARI MENDEZ Encounter No: [id number] : 1940 Primary Insurance: MEDICARE A & B Anticipated DC Date: Planned Disposition: INPATIENT REHAB External Planned Provider: TO BE DETERMINED DCP follow-up note: CM SPOKE TO DR. SUTTON WHO INFORMED CM THAT PT WAS ABOUT READY TO DISCHARGE AND MAY BE FROM A REHAB IN [place]. CM SPOKE TO PT IN ROOM WHO REPORTS HE WAS AT HOME PRIOR TO HOSPITAL STAY AND THAT HIS SON MAY WANT HIM TO GO TO REHAB CLOSER TO HOME IT IS TOO FAR FOR THEM TO DRIVE HERE. PT ASKED CM TO CALL HIS SON, MINNIE OR DAUGHTER IN LAW, MICHAEL, TO DISCUSS DISCHARGE PLAN. PT REPORTS HE STILL REALLY WANTS TO GO HOME AND WILL ACCEPT HOME HEALTH WITH [facility] BUT HIS FAMILY WILL BE MAKING THE DECISION REGARDING REHAB. CM CALLED BILL AND MICHAEL MENDEZ, , LEFT DETAILED MESSAGE ASKING FOR RETURN CALL SOON POSSIBLE TO DISCUSS DISCHARGE PLANNING. William Hernandez, CASE MANAGEMENT DCP- Discharge Planning Updated by [email or web address]: Barbi Gallo on 10/10/18 5:[address] PRIMARY NURSE, ELMER, REPORTS DR MATA SPOKE WITH THE PATIENT AND HIS FAMILY DURING ROUNDS TODAY. HE RECOMMENDS ACUTE REHAB. THE FAMILY WOULD LIKE [facility] REHAB IN [place], [place]. NASAL OXYGEN INCREASED TO 3/L VIA N/C. WBC INCREASING. PT IS ON STEROIDS. HOWEVER HIS CXR LOOKS WORSE PER MD NOTES. PATIENT IS RECEIVING PHYSICAL THERAPY. REQUIRES MODERATE ASSIST. AMBULATED 3FT W/ 40% ASSIST. OT EVAL ORDERED. CM TO FOLLOW TO ASSIST IS APPROPRIATE. DCP- Discharge Planning Updated by [email or web address]: William Hernandez on 10/08/18 4:[address] Patient Name: AMARI MENDEZ Encounter No: [id number] : 1940 Primary Insurance: MEDICARE A & B Anticipated DC Date: Planned Disposition: Home with Home Health External Planned Provider: [facility] DCP follow-up note: CM RECEIVED ORDER FOR INPATIENT REHAB PRESCREENING. CM MET WITH PT IN ROOM TO DISCUSS DISCHARGE PLANNING AND NEEDS. PT REPORTS LIVING AT HOME DEPENDENT ON HIS DAUGHTER IN LAW WHO ASSISTS WITH BATH, TRANFERS AND TOILETING. PT HAS NEBULIZER, HOSPITAL BED, ROLLING WALKER FROM UNKNOWN [employer]. PT HAS [facility], THEY HAVE NOT YET STARTED THERAPY BUT WERE SUPPOSED TO SEE PT BUT HE GOT SICK AND HAD TO COME BACK TO THE HOSPITAL. CM DISCUSSED AVAILABILITY OF HOME HEALTH, REHAB SERVICES AND MEDICAL EQUIPMENT. PT DENIES NEED OF INPATIENT OR CARE HOME THERAPY SERVICES INFORMING CM HE IS GOING HOME AND [facility] AND COME TO THE HOUSE. PT REPORTS HE RECEIVES GOOD CARE FROM HIS FAMILY AND WILL RETURN HOME WITH THEM. PT REPORTS HIS SON OR DAUGHTER IN LAW WILL PICK HIM UP FOR DISCHARGE HOME. CM PROVIDED PT WITH CHOICE LISTING FOR HOME HEALTH, PT SIGNED CHOICE FOR [email or web address] [facility]. PT DECLINES REHAB, WANTS TO GO HOME WITH FAMILY AND [email or web address] [facility] RESUMPTION. FOR DISCHARGE, NOTIFY [email or web address] [facility], , FAX DISCHARGE INFORMATION TO [facility] AT [phone]. William Hernandez, CASE MANAGEMENT DCP- Discharge Planning Updated by [email or web address]: Petra Handley on 10/07/18 2:[address] ATTEMPTED TO SEE PATIENT FOR ASSESSMENT, BUT HE WAS SLEEPING WILL TRY AGAIN AT A LATER TIME Coverage Notice Reviewer: [id number] Colton Hernandez Notice Issued Date-Time: 10/08/2018 16:55 Notice Type: Patient Choice Letter Notice Delivered To: Patient Relationship to Patient: Tail Board Worker Name: Delivery Method: HAND - Hand Delivered Mai Days: Prior Verbal Notification: Recipient Understood Notice: Yes Recipient Signature: Yes Med Rec Note Co-signed by Attending: Coverage Notice Comment: [email or web address] [facility] Reviewer: [id number] Colton Hernandez Notice Issued Date-Time: 10/14/2018 10:25 Notice Type: IM Discharge Notice Notice Delivered To: Family Member Relationship to Patient: Daughter in Law Tail Board Worker Name: MICHAEL MENDEZ Delivery Method: HAND - Hand Delivered Mai Days: Prior Verbal Notification: Recipient Understood Notice: Yes Recipient Signature: Yes Med Rec Note Co-signed by Attending: Coverage Notice Comment: Last DP export: 10/14/18 11:52 am Patient Name: AMARI MENDEZ Page 52646 at 1313 All edits/amendments must be made on the electronic document DICTATION DATE: 10/14/18 1313 BODY FORMER: NEAL 10/14/18 1313 RPT#: [id number] DC DATE: STATUS: ADM IN [facility] [address] [facility] [place] [address] END OF REPORT
--- NOTE | 2018-10-14 13:29 | NUR ---
UP TO CHAIR WITH PT ASSIST.
[2018-10-14] MEDS ORDERED: PREDNISONE10 MG PO (14:25)
[2018-10-14] MEDS ORDERED: ZITHROMAX250 MG PO (14:26)
[2018-10-14] MEDS ORDERED: ELIQUIS5 MG PO (14:29)
[2018-10-14 16:01] VITALS: BP 129/61
--- NOTE | 2018-10-14 16:06 | MORECARE ---
CASE MANAGEMENT DISCHARGE SUMMARY PATIENT: AMARI MENDEZ UNIT: [id number] ADM DATE: 10/07/18 AGE: 77 : 38 SEX: M ROOM/BED: D.2114 AUTHOR: AJAY,DOC PHYSICIAN: REFERRING PHYSICIAN: JORDYN MATA MD DATE OF SERVICE: 10/14/18 Discharge Plan Patient Name: AMARI MENDEZ Facility: [facility]:[place] : 1940 Planned Disposition: Home with Home Health Anticipated Discharge Date: 10/14/18 Discharge Date: Expected LOS: 7 Initial Reviewer: [email or web address] Initial Review Date: 10/07/2018 Generated: 10/14/18 5:06 pm Comments DCP- Discharge Planning Updated by [email or web address]: William Hernandez on 10/14/18 12:[address] Patient Name: AMARI MENDEZ Encounter No: [id number] : 1940 Primary Insurance: MEDICARE A & B Anticipated DC Date: 10-14-2018 Planned Disposition: Home with Home Health External Planned Provider: [facility] DCP follow-up note: CM CALLED PT'S FAMILY AT HOME, , LEFT MESSAGE ASKING FOR RETURN CALL SOON POSSIBLE. CM SPOKE TO PT WHO INSISTS HE IS GOING HOME WITH [employer], REPORTS HIS DAUGHTER IN LAW, MICHAEL WILL BE HERE THIS MORNING TO PICK HIM UP. CM SPOKE TO MICHAEL AND PT IN ROOM, WENT OVER THERAPY NOTES AND RECOMMENDED REHAB PRIOR TO PT GOING HOME. PT REFUSES, MICHAEL REPORTS ABILITY TO CARE FOR PT AT HOME AND WANTS HOME HEALTH WITH [employer] TO RESUME. CM NOTIFIED VISHNU ISBELL. CM NOTIFIED [facility], , FAXED HOSPITAL UPDATE TO [facility] AT [phone]. MARYCRUZ Rucker DCP- Discharge Planning Updated by [email or web address]: William Hernandez on 10/13/18 1:[address] Patient Name: AMARI MENDEZ Encounter No: [id number] : 1940 Primary Insurance: MEDICARE A & B Anticipated DC Date: Planned Disposition: INPATIENT REHAB External Planned Provider: TO BE DETERMINED DCP follow-up note: CM SPOKE TO DR. SUTTON WHO INFORMED CM THAT PT WAS ABOUT READY TO DISCHARGE AND MAY BE FROM A REHAB IN [place]. CM SPOKE TO PT IN ROOM WHO REPORTS HE WAS AT HOME PRIOR TO HOSPITAL STAY AND THAT HIS SON MAY WANT HIM TO GO TO REHAB CLOSER TO HOME IT IS TOO FAR FOR THEM TO DRIVE HERE. PT ASKED CM TO CALL HIS SON, MINNIE OR DAUGHTER IN LAW, MICHAEL, TO DISCUSS DISCHARGE PLAN. PT REPORTS HE STILL REALLY WANTS TO GO HOME AND WILL ACCEPT HOME HEALTH WITH [facility] BUT HIS FAMILY WILL BE MAKING THE DECISION REGARDING REHAB. CM CALLED BILL AND MICHAEL MENDEZ, , LEFT DETAILED MESSAGE ASKING FOR RETURN CALL SOON POSSIBLE TO DISCUSS DISCHARGE PLANNING. William Hernandez, CASE MANAGEMENT DCP- Discharge Planning Updated by [email or web address]: Barbi Gallo on 10/10/18 5:[address] PRIMARY NURSE, ELMER, REPORTS DR MATA SPOKE WITH THE PATIENT AND HIS FAMILY DURING ROUNDS TODAY. HE RECOMMENDS ACUTE REHAB. THE FAMILY WOULD LIKE [facility] REHAB IN [place], [place]. NASAL OXYGEN INCREASED TO 3/L VIA N/C. WBC INCREASING. PT IS ON STEROIDS. HOWEVER HIS CXR LOOKS WORSE PER MD NOTES. PATIENT IS RECEIVING PHYSICAL THERAPY. REQUIRES MODERATE ASSIST. AMBULATED 3FT W/ 40% ASSIST. OT EVAL ORDERED. CM TO FOLLOW TO ASSIST IS APPROPRIATE. DCP- Discharge Planning Updated by [id number]: William Hernandez on 10/08/18 4:[address] Patient Name: AMARI MENDEZ Encounter No: [id number] : 1940 Primary Insurance: MEDICARE A & B Anticipated DC Date: Planned Disposition: Home with Home Health External Planned Provider: [facility] DCP follow-up note: CM RECEIVED ORDER FOR INPATIENT REHAB PRESCREENING. CM MET WITH PT IN ROOM TO DISCUSS DISCHARGE PLANNING AND NEEDS. PT REPORTS LIVING AT HOME DEPENDENT ON HIS DAUGHTER IN LAW WHO ASSISTS WITH BATH, TRANFERS AND TOILETING. PT HAS NEBULIZER, HOSPITAL BED, ROLLING WALKER FROM UNKNOWN [employer]. PT HAS [facility], THEY HAVE NOT YET STARTED THERAPY BUT WERE SUPPOSED TO SEE PT BUT HE GOT SICK AND HAD TO COME BACK TO THE HOSPITAL. CM DISCUSSED AVAILABILITY OF HOME HEALTH, REHAB SERVICES AND MEDICAL EQUIPMENT. PT DENIES NEED OF INPATIENT OR LONG TERM THERAPY SERVICES INFORMING CM HE IS GOING HOME AND [facility] AND COME TO THE HOUSE. PT REPORTS HE RECEIVES GOOD CARE FROM HIS FAMILY AND WILL RETURN HOME WITH THEM. PT REPORTS HIS SON OR DAUGHTER IN LAW WILL PICK HIM UP FOR DISCHARGE HOME. CM PROVIDED PT WITH CHOICE LISTING FOR HOME HEALTH, PT SIGNED CHOICE FOR [facility]. PT DECLINES REHAB, WANTS TO GO HOME WITH FAMILY AND [facility] [facility] RESUMPTION. FOR DISCHARGE, NOTIFY [facility], , FAX DISCHARGE INFORMATION TO [facility] AT [phone]. William Hernandez, CASE MANAGEMENT DCP- Discharge Planning Updated by [email or web address]: Petra Handley on 10/07/18 2:[address] ATTEMPTED TO SEE PATIENT FOR ASSESSMENT, BUT HE WAS SLEEPING WILL TRY AGAIN AT A LATER TIME DCPIA - Discharge Planning Initial Assessment Updated by [id number]: William Hernandez on 10/14/18 4:00 pm * Is the patient Alert and Oriented? Yes * PCP DR. ANISHA ANNA, [facility], [place], [place] * Pharmacy [facility] [place] Coverage Notice Reviewer: [id number] Colton Hernandez Notice Issued Date-Time: 10/08/2018 16:55 Notice Type: Patient Choice Letter Notice Delivered To: Patient Relationship to Patient: Stain Maker Name: Delivery Method: HAND - Hand Delivered Mai Days: Prior Verbal Notification: Recipient Understood Notice: Yes Recipient Signature: Yes Med Rec Note Co-signed by Attending: Coverage Notice Comment: [facility] Reviewer: [id number] Colton Hernandez Notice Issued Date-Time: 10/14/2018 10:25 Notice Type: IM Discharge Notice Notice Delivered To: Family Member Relationship to Patient: Daughter in Law Stain Maker Name: MICHAEL MENDEZ Delivery Method: HAND - Hand Delivered Mai Days: Prior Verbal Notification: Recipient Understood Notice: Yes Recipient Signature: Yes Med Rec Note Co-signed by Attending: Coverage Notice Comment: Last DP export: 10/14/18 12:13 pm Patient Name: AMARI MENDEZ Page [id number] at 1606 All edits/amendments must be made on the electronic document DICTATION DATE: 10/14/18 1605 BAG BLEACHER: NEAL 10/14/18 1605 RPT#: [id number] DC DATE: STATUS: ADM IN [facility] [address] [place] [address] END OF REPORT
--- NOTE | 2018-10-14 16:58 | NUR ---
IV AND TELEMETRY DCD. DC PLANS GIVEN. UNDERSTANDING VOICED. ESCORTED TO CAR BY W/C.
--- NOTE | 2018-10-14 17:03 | MORECARE ---
CASE MANAGEMENT DISCHARGE SUMMARY PATIENT: AMARI MENDEZ UNIT: [id number] ADM DATE: 10/07/18 AGE: 77 : 38 SEX: M ROOM/BED: D.2114 AUTHOR: AJAY,DOC PHYSICIAN: REFERRING PHYSICIAN: JORDYN MATA MD DATE OF SERVICE: 10/14/18 Discharge Plan Patient Name: AMARI MENDEZ Facility: [facility]:[place] : 1940 Planned Disposition: Home with Home Health Anticipated Discharge Date: 10/14/18 Discharge Date: 10/14/2018 Expected LOS: 7 Initial Reviewer: [id number] Initial Review Date: 10/07/2018 Generated: 10/14/18 6:03 pm Comments DCP- Discharge Planning Updated by [id number]: William Hernandez on 10/14/18 3:[address] Patient Name: AMARI MENDEZ Encounter No: [id number] : 1940 Primary Insurance: MEDICARE A & B Anticipated DC Date: 10-14-2018 Planned Disposition: Home with Home Health External Planned Provider: [facility] DCP follow-up note: DMITRI CALLED PT'S FAMILY AT HOME, , LEFT MESSAGE ASKING FOR RETURN CALL SOON POSSIBLE. CM SPOKE TO PT WHO INSISTS HE IS GOING HOME WITH [facility], REPORTS HIS DAUGHTER IN LAW, MICHAEL WILL BE HERE THIS MORNING TO PICK HIM UP. CM SPOKE TO MICHAEL AND PT IN ROOM, WENT OVER THERAPY NOTES AND RECOMMENDED REHAB PRIOR TO PT GOING HOME. PT REFUSES, MICHAEL REPORTS ABILITY TO CARE FOR PT AT HOME AND WANTS HOME HEALTH WITH [facility] TO RESUME. DMITRI NOTIFIED VISHNU ISBELL. CM NOTIFIED [facility], , FAXED HOSPITAL UPDATE TO [facility] AT [phone]. William Hernandez, CASE MANAGEMENT Appended by William Hernandez on 10/14/2018 16:59 MOUNTAIN GUIDE: DISCHARGE ORDERS RECEIVED, DMITRI FAXED DISCHARGE INFORMATION TO [facility], . William Hernandez, CASE JACQUELIN DCP- Discharge Planning Updated by [id number]: William Hernandez on 10/13/18 1:[address] Patient Name: AMARI MENDEZ Encounter No: [id number] : 1940 Primary Insurance: MEDICARE A & B Anticipated DC Date: Planned Disposition: INPATIENT REHAB External Planned Provider: TO BE DETERMINED DCP follow-up note: CM SPOKE TO DR. SUTTON WHO INFORMED CM THAT PT WAS ABOUT READY TO DISCHARGE AND MAY BE FROM A REHAB IN [place]. CM SPOKE TO PT IN ROOM WHO REPORTS HE WAS AT HOME PRIOR TO HOSPITAL STAY AND THAT HIS SON MAY WANT HIM TO GO TO REHAB CLOSER TO HOME IT IS TOO FAR FOR THEM TO DRIVE HERE. PT ASKED CM TO CALL HIS SON, MINNIE OR DAUGHTER IN LAW, MICHAEL, TO DISCUSS DISCHARGE PLAN. PT REPORTS HE STILL REALLY WANTS TO GO HOME AND WILL ACCEPT HOME HEALTH WITH [facility] BUT HIS FAMILY WILL BE MAKING THE DECISION REGARDING REHAB. CM CALLED BILL AND MICHAEL MENDEZ, , LEFT DETAILED MESSAGE ASKING FOR RETURN CALL SOON POSSIBLE TO DISCUSS DISCHARGE PLANNING. William Hernandez, CASE MANAGEMENT DCP- Discharge Planning Updated by [id number]: Barbi Gallo on 10/10/18 5:[address] PRIMARY NURSE, [place], REPORTS DR MATA SPOKE WITH THE PATIENT AND HIS FAMILY DURING ROUNDS TODAY. HE RECOMMENDS ACUTE REHAB. THE FAMILY WOULD LIKE [facility] IN [place], [place]. NASAL OXYGEN INCREASED TO 3/L VIA N/C. WBC INCREASING. PT IS ON STEROIDS. HOWEVER HIS CXR LOOKS WORSE PER MD NOTES. PATIENT IS RECEIVING PHYSICAL THERAPY. REQUIRES MODERATE ASSIST. AMBULATED 3FT W/ 40% ASSIST. OT EVAL ORDERED. CM TO FOLLOW TO ASSIST IS APPROPRIATE. DCP- Discharge Planning Updated by [id number]: William Hernandez on 10/08/18 4:[address] Patient Name: AMARI MENDEZ Encounter No: [id number] : 1940 Primary Insurance: MEDICARE A & B Anticipated DC Date: Planned Disposition: Home with Home Health External Planned Provider: [facility] DCP follow-up note: CM RECEIVED ORDER FOR INPATIENT REHAB PRESCREENING. CM MET WITH PT IN ROOM TO DISCUSS DISCHARGE PLANNING AND NEEDS. PT REPORTS LIVING AT HOME DEPENDENT ON HIS DAUGHTER IN LAW WHO ASSISTS WITH BATH, TRANFERS AND TOILETING. PT HAS NEBULIZER, HOSPITAL BED, ROLLING WALKER FROM [facility]. PT HAS [facility], THEY HAVE NOT YET STARTED THERAPY BUT WERE SUPPOSED TO SEE PT BUT HE GOT SICK AND HAD TO COME BACK TO THE HOSPITAL. CM DISCUSSED AVAILABILITY OF HOME HEALTH, REHAB SERVICES AND MEDICAL EQUIPMENT. PT DENIES NEED OF INPATIENT OR CUSTODIAL THERAPY SERVICES INFORMING CM HE IS GOING HOME AND [facility] AND COME TO THE HOUSE. PT REPORTS HE RECEIVES GOOD CARE FROM HIS FAMILY AND WILL RETURN HOME WITH THEM. PT REPORTS HIS SON OR DAUGHTER IN LAW WILL PICK HIM UP FOR DISCHARGE HOME. CM PROVIDED PT WITH CHOICE LISTING FOR HOME HEALTH, PT SIGNED CHOICE FOR [facility]. PT DECLINES REHAB, WANTS TO GO HOME WITH FAMILY AND [facility] RESUMPTION. FOR DISCHARGE, NOTIFY [facility], , FAX DISCHARGE INFORMATION TO [facility] AT [phone]. William Hernandez, CASE MANAGEMENT DCP- Discharge Planning Updated by [id number]: Petra Handley on 10/07/18 2:[address] ATTEMPTED TO SEE PATIENT FOR ASSESSMENT, BUT HE WAS SLEEPING WILL TRY AGAIN AT A LATER TIME DCPIA - Discharge Planning Initial Assessment Updated by [id number]: William Hernandez on 10/14/18 4:00 pm * Is the patient Alert and Oriented? Yes * PCP DR. ANISHA ANNA, [facility], [place], [place] * Pharmacy [facility] IN [place] Coverage Notice Reviewer: [id number] Colton Hernandez Notice Issued Date-Time: 10/08/2018 16:55 Notice Type: Patient Choice Letter Notice Delivered To: Patient Relationship to Patient: Body Liner Name: Delivery Method: HAND - Hand Delivered Mai Days: Prior Verbal Notification: Recipient Understood Notice: Yes Recipient Signature: Yes Med Rec Note Co-signed by Attending: Coverage Notice Comment: [facility] Reviewer: [id number] Colton Hernandez Notice Issued Date-Time: 10/14/2018 10:25 Notice Type: IM Discharge Notice Notice Delivered To: Family Member Relationship to Patient: Daughter in Law Body Liner Name: MICHAEL MENDEZ Delivery Method: HAND - Hand Delivered Mai Days: Prior Verbal Notification: Recipient Understood Notice: Yes Recipient Signature: Yes Med Rec Note Co-signed by Attending: Coverage Notice Comment: Last DP export: 10/14/18 3:06 pm Patient Name: AMARI MENDEZ Page 52888 at 1703 All edits/amendments must be made on the electronic document DICTATION DATE: 10/14/181702 ROLL EXAMINER: NEAL 10/14/181702 RPT#: [id number] DC DATE:10/14/18 STATUS: DIS IN [facility] [address] [place] [address] END OF REPORT
== END 2018-10-14 17:00 | disposition home health service (06) | DRG 175 ==
LOC: D.ER 02:26 → D.M2 04:24 → D.EDHOLD 04:24 → D.M2 05:11 → D.SDCHOLD 10-10 11:47 → D.M2 10-10 11:50
PROVIDERS: Family Medicine; ADMIT Internal Medicine Nephrology; ATTEND Internal Medicine Nephrology
DX: I26.99 Other pulmonary embolism without acute cor pulmonale (principal); J18.9 Pneumonia, unspecified organism; J44.0 Chronic obstructive pulmonary disease with (acute) lower respiratory infection; I24.8 Other forms of acute ischemic heart disease; J44.1 Chronic obstructive pulmonary disease with (acute) exacerbation; J20.9 Acute bronchitis, unspecified; R79.89 Other specified abnormal findings of blood chemistry; E11.9 Type 2 diabetes mellitus without complications; D69.6 Thrombocytopenia, unspecified; G20 Parkinson's disease

== ENCOUNTER 2019-09-02 19:24 | Inpatient (IN) | payer MEDICARE ==
[~2019-09-02] VITALS: Ht 180.3 cm; Wt 81.6 kg
[~2019-09-02 19:24] MED LIST: ACETAMINOPHEN325 MG PO; ASPIRIN325 MG PO; CARBIDOPA-LEVO1 EAC2 PO; ELIQUIS5 MG PO; NEURONTIN 300300 MG PO; OMEPRAZOLE20 M1 PO; PREDNISONE10 MG PO; REQUIP1 MG PO; SYMBICORT 16010.2 GM INH; VITAMIN D2000 UNIT PO; ZITHROMAX250 MG PO
[2019-09-02 20:27] LABS: BASOPHILS 0.1 % (0-2); EOSINOPHILS 0 % (0-7); HEMATOCRIT 38.2 % (42.0-54.0); HEMOGLOBIN 12.2 g/dL (13.5-17.5); IMMATURE GRANULOCYTES 0.5 % (0-5); LYMPHOCYTES 2.6 % (15-50); MCH 27.7 pg (26.0-34.0); MCHC 31.9 g/dL (31.0-37.0); MCV 86.8 fL (80.0-100.0); MEAN PLATELET VOLUME 10.7 fL (7.4-10.4); NEUTROPHILS 91.8 % (40-80); PLATELET COUNT 77 10x3/uL (130-400); RDW 15.3 % (11.5-14.5); WBC 17.4 10x3/uL (4.8-10.8)
[2019-09-02 20:36] LABS: ANION GAP 14.9 mmol/L (8-16); CALCIUM 7.8 mg/dL (8.5-10.1); CARBON DIOXIDE 25.8 mmol/L (21.0-32.0); CREATININE - SERUM 2.9 mg/dL (0.6-1.3); POTASSIUM - SERUM 4.7 mmol/L (3.5-5.1)
[2019-09-02 21:03] LABS: PLATELET ESTIMATE DECREASED
[2019-09-02 21:06] LABS: TROPONIN-I 0.107 ng/mL (0.000-0.060)
[2019-09-02] MEDS ORDERED: PROSCAR5 MG PO (22:50)
[2019-09-02] MEDS ORDERED: ALBUTEROL SULF8.5 GM INH (22:51)
[2019-09-02] MEDS ORDERED: SINEMET CR 50-1 EACH PO (22:54)
[2019-09-02] MEDS ORDERED: FLOMAX0.4 MG PO (22:55)
[2019-09-02] MEDS ORDERED: OXYBUTYNIN CHLOR5 MG PO (22:56)
[2019-09-02] MEDS ORDERED: LISINOPRIL2.5 MG PO (22:56)
--- NOTE | 2019-09-02 23:30 | NUR ---
PT WAS ADMITTED TO ROOM 2128 FROM ER VIA STRETCHER. MULTIPLE FAMILY IN/OUT OF ROOM. ADMISSION ASSESSMENT COMPLETED. ADMISSION HISTORY OBTAINED FROM SON/GRANDDAUGHTER MINNIE/DIAZ. SON STATES PT WANTS ALL MEASURES TAKEN IF HE STOPS BREATHING OR HIS HEART STOPS BEATING. CLARIFIED THAT ER MD HAD MADE PATIENT A DNR AND SON STATES ABSOLUTELY NOT, THAT ALL MEASURES ARE TO BE TAKEN. WILL D/C THE ORDER PER FAMILY REQUEST. PT IS NOW A FULL CODE.
--- NOTE | 2019-09-03 00:10 | NUR ---
UPDATED HOME MED LIST WITH PATIENTS GRANDDAUGHTER, DIAZ. FAMILY TEACHING ON PLAN OF CARE/INTERVENTIONS BEING PERFORMED. REMOVED DNR ORDER.
--- NOTE | 2019-09-03 02:38 | NUR ---
RESTING IN BED. HAS BEEN REPOSITIONED. FAMILY HAS BEEN IN/OUT OF ROOM. IVF INFUSING. CPOC. SR/73 PER TELEMETRY.
[2019-09-03 02:39] LABS: BASOPHILS 0.1 % (0-2); EOSINOPHILS 0.1 % (0-7); HEMATOCRIT 32.7 % (42.0-54.0); HEMOGLOBIN 10.4 g/dL (13.5-17.5); IMMATURE GRANULOCYTES 0.2 % (0-5); LYMPHOCYTES 7.7 % (15-50); MCH 27.5 pg (26.0-34.0); MCHC 31.8 g/dL (31.0-37.0); MCV 86.5 fL (80.0-100.0); MEAN PLATELET VOLUME 11.1 fL (7.4-10.4); MONOCYTES 5.2 % (2-11); NEUTROPHILS 86.7 % (40-80); PLATELET COUNT 72 10x3/uL (130-400); RBC 3.78 10x6/uL (4.20-6.10); RDW 15.3 % (11.5-14.5)
[2019-09-03 02:41] LABS: WBC 12.3 10x3/uL (4.8-10.8)
[2019-09-03 02:47] LABS: INR 1.51 (0.85-1.17); PROTIME 18.1 SECONDS (11.6-15.0)
[2019-09-03 02:48] LABS: APTT 42.7 SECONDS (22.8-39.4)
[2019-09-03 02:56] LABS: % SATURATION 7 % (15-55); IRON 10 ug/dl (35-150); TOTAL IRON BIND CAPACITY 138 ug/dl (260-445); UNSAT IRON BIND CAPACITY 128 ug/dl (150-375)
[2019-09-03 03:01] VITALS: BP 84/42; BMI 25.1
[2019-09-03 03:13] LABS: ALBUMIN 2.4 g/dL (3.4-5.0); ALKALINE PHOSPHATASE 113 U/L (30-120); ALT (SGPT) 13 U/L (10-68); BILIRUBIN - TOTAL 0.85 mg/dL (0.2-1.3); CALC OSMOLALITY 291 mosm/kg (275-300); CALCIUM 7.5 mg/dL (8.5-10.1); CARBON DIOXIDE 24.6 mmol/L (21.0-32.0); CHLORIDE - SERUM 110 mmol/L (98-107); CREATINE KINASE 517 UL (21-232); CREATININE - SERUM 2.5 mg/dL (0.6-1.3); FERRITIN 295 ng/mL (3-244); GLUCOSE 96 mg/dL (74-106); MAGNESIUM - SERUM 1.8 mg/dL (1.8-2.4); PHOSPHOROUS 2.8 mg/dL (2.5-4.9); POTASSIUM - SERUM 4.5 mmol/L (3.5-5.1); PRO BNP 8381 pg/mL (0-450); PROTEIN - SERUM 5.6 g/dL (6.4-8.2); SODIUM 142 mmol/L (136-145); UREA NITROGEN 37 mg/dL (7-18); eGFR NON AFRICAN AMERICAN 26 mL/min (90-120)
[2019-09-03 04:00] VITALS: BP 92/48
--- NOTE | 2019-09-03 04:37 | NUR ---
I have reviewed this patient and I concur with the Shift Assessment completed by the Licensed Practical Nurse today this shift.
--- NOTE | 2019-09-03 07:00 | NUR ---
RECEIVED REPORT. ASSUMED CARE OF PATIENT. PATIENT RESTING IN BED WITH EYES CLOSED, EASILY AROUSED. PATIENT ABLE TO ANSWER SOME SIMEPLE QUESTIONS, DIFFICULT TO UNDERSTAND HE MUMBLES. RESP EVEN AND UNLABORED. CALL LIGHT WITHIN REACH. NO DISTRESS. IV FLUIDS INFUSING ORDERED. HIGGINS CATH NOW DRAINING CLEAR STRAW COLOR URINE. NO FAMILY AT BEDSIDE.
[2019-09-03 08:00] VITALS: BP 106/56
--- NOTE | 2019-09-03 08:44 | NUR ---
MEAL TRAY SET UP FOR PATIENT. PATIENT TOOK ORAL MEDICATION WITHOUT DIFFICULTY. WET NON PRODUCTIVE COUGH NOTED, BUT NOT CORRELATING WITH SWALLOWING.
[2019-09-03 09:04] LABS: APPEARANCE HAZY (CLEAR); BILIRUBIN NEGATIVE (NEGATIVE); COLOR YELLOW (YELLOW); GLUCOSE NEGATIVE (NEGATIVE); KETONE NEGATIVE (NEGATIVE); NITRITE NEGATIVE (NEGATIVE); PROTEIN 1+ mg/dL (NEGATIVE); SPECIFIC GRAVITY 1.015 (1.005-1.020); UROBILINOGEN NORMAL (NORMAL)
[2019-09-03 09:05] LABS: AMORPHOUS SEDIMENT <1+ /lpf (NONE SEEN); BACTERIA MANY /hpf (NEGATIVE); EPITHELIAL CELLS 0-5 /hpf (0-5); HYALINE CAST 0-5 /lpf (NONE SEEN); MUCUS >1+ /lpf (NONE SEEN)
--- NOTE | 2019-09-03 09:43 | NUR ---
PATIENTS RON HARTMAN CALLED TO CHECK ON PATIENT AT THIS TIME. NO DISTRESS. UPDATE PROVIDED, PATIENT IS STABLE.
--- NOTE | 2019-09-03 11:59 | NUR ---
FSBS 97. NO INSULIN ADMINISTERED PER SLIDING SCALE.
[2019-09-03 12:00] VITALS: Ht 180.3 cm; Wt 81.6 kg
[2019-09-03 16:00] VITALS: BP 116/63
--- NOTE | 2019-09-03 19:20 | NUR ---
RECEIVED REPORT, WILL ASSUME CARE OF PT, VISITING WITH FAMILY, DENIES ANY NEEDS AT THIS TIME, BED IS LOW, SRX2, CALL LIGHT IN REACH, WILL CONTINUE PLAN OF CARE
[2019-09-03 20:00] VITALS: BP 131/64
[2019-09-04] VITALS: BP 136/68
[2019-09-04 04:00] VITALS: BP 149/89
--- NOTE | 2019-09-04 04:15 | NUR ---
PT STATES HOME IS PAID UP, HE IS READY TO GO SEE HIS , HE IS READY FOR GOD TO COME GET HIM, WHEN ASK IF HE WANTED A TUBE OR CPR IF HE STOP BREATHING, HE SAID NO, WITNESS BY GURMEET WALTERS, LUCINA WALTERS, [facility] RN AND MYSELF, WILL FOLLOW UP WITH FAMILY
--- NOTE | 2019-09-04 05:34 | NUR ---
I have reviewed this patient and I concur with the Shift Assessment completed by the Licensed Practical Nurse today this shift.
[2019-09-04 06:37] LABS: BASOPHILS 0.1 % (0-2); HEMATOCRIT 33.8 % (42.0-54.0); HEMOGLOBIN 10.6 g/dL (13.5-17.5); IMMATURE GRANULOCYTES 0.4 % (0-5); LYMPHOCYTES 10.1 % (15-50); MCH 26.8 pg (26.0-34.0); MCHC 31.4 g/dL (31.0-37.0); MCV 85.6 fL (80.0-100.0); MEAN PLATELET VOLUME 10.9 fL (7.4-10.4); MONOCYTES 6.3 % (2-11); NEUTROPHILS 82.1 % (40-80); PLATELET COUNT 77 10x3/uL (130-400); RBC 3.95 10x6/uL (4.20-6.10); RDW 14.7 % (11.5-14.5)
[2019-09-04 06:40] LABS: WBC 7.9 10x3/uL (4.8-10.8)
[2019-09-04 06:43] LABS: ANION GAP 13.2 mmol/L (8-16); CARBON DIOXIDE 21.9 mmol/L (21.0-32.0); CREATININE - SERUM 1.5 mg/dL (0.6-1.3); PHOSPHOROUS 2.5 mg/dL (2.5-4.9); POTASSIUM - SERUM 4.1 mmol/L (3.5-5.1)
--- NOTE | 2019-09-04 07:00 | NUR ---
RECEIVED REPORT. ASSUMED CARE OF PATIENT. CALL LIGHT WITHIN REACH. RESTING WITH EYES CLOSED. RESP EVEN AND UNLABORED. NO DISTRESS. SR ON TELEMETRY, 82.NO DISTRESS.
[2019-09-04 08:00] VITALS: BP 137/65
--- NOTE | 2019-09-04 08:45 | NUR ---
ASSIST PROVIDED TO PATIENT WITH FEEDING AM MEAL. PATIENT UNABLE TO FEED SELF.
--- NOTE | 2019-09-04 11:05 | NUR ---
PATIENT TURNED AND REPOSITIONED. INCONTINENT CARE PROVIDED. MEDIUM SIZED BM. MEPILEX DRESSING REPLACED TO COCCYX / SACRUM AREA. OLD SCAR TISSUE WITH DISCOLORATION NOTED PREVIOUSLY DURING ASSESSMENT. NO DISTRESS. CALL LIGHT WITHIN REACH.
[2019-09-04 12:00] VITALS: BP 115/64
[2019-09-04 16:00] VITALS: BP 104/51
--- NOTE | 2019-09-04 17:12 | NUR ---
FAMILY AT BEDSIDE HELPING PATIENT CONSUME PM MEAL. NO DISTRESS. IV FLUIDS CONTINUE ORDERED. CALL LIGHT WITHIN REACH. NO DISTRESS.
--- NOTE | 2019-09-04 18:31 | NUR ---
INCONTINENT CARES PROVIDED. TURNED AND REPOSITIONED. CALL LIGHT WITHIN REACH. NO DISTRESS.
[2019-09-04 20:00] VITALS: BP 114/55
--- NOTE | 2019-09-04 20:25 | NUR ---
INITIAL ROUNDS COMPLETED AT 1909 HRS. PT RESTING WITH EYES CLOSED. RESP EVEN AND REGULAR. ASSESSMENT COMPLETED AT 1954 HRS. VSS. SR PER CM HR 63. IV TO RAC WITH NS AT 100CC/HR. LUNGS DIMINISHED IN BASES BILAT. HIGGINS DRAINING YELLOW URINE. MEPILEX TOCOCCYX CLEAN, DRY AND INTACT. PT VERY LETHARGIC. MOVES FEET TO STIMULI BUT WON'T OPEN EYES. L EYE MISHAPPEN. R EYE 3 AND SLUGGISH. NO RESPONSE TO STERNAL RUB. FSBS 113. RAPID RESPONSE CALLED A 2009 HRS. PT OPENED EYES TO STERNAL RUB, FOLLOWED COMMANDS. STATED YES WHEN ASKED IF HE WAS ALL RIGHT. RAPID RESPONSE CANCELLED. PT DRANK THICKENED WATER WITHOUT DIFFICULTY. REPOSITIONED ONTO L SIDE. SR UP X2, CALL LIGHT WITHIN REACH AND BED ALARM ON.
--- NOTE | 2019-09-04 22:31 | NUR ---
PT AWAKE; DENIES ANY DISCOMFORT. DRANK APPROX 60CC OF NECTAR THICK WATER WITHOUT DIFFICULTY. REPOSITIONED ONTO R SIDE. SR UP X2, CALL LIGHT WITHIN REACH AND BED ALARM ON.
[2019-09-05] VITALS: BP 130/57
--- NOTE | 2019-09-05 00:48 | NUR ---
PT REPOSITIONED ONTO BACK. PT DENIES ANY DISCOMFORT OR NEEDS. SR UP X2, CALL LIGHT WITHIN REACH.
--- NOTE | 2019-09-05 02:50 | NUR ---
PT REPOSITIONED ONTO R SIDE AND PULLED UP IN BED. PT ASKING QUESTIONS ABOUT OTHER PEOPLE AND WANTED TO KNOW IF THEY WERE HIS FAMILY. INFORMED PT HIS FAMILY IS AT HOME AND THE OTHER PEOPLE ARE PTS AND STAFF. PT STATED UNDERSTANDING. SR UP X2, CALL LIGHT WITHIN REACH.
--- NOTE | 2019-09-05 03:57 | NUR ---
PT RESTING WITH EYES CLOSED. RESP EVEN AND REGULAR. SR UP X2, CALL LIGHT WITHIN REACH.
[2019-09-05 04:00] VITALS: BP 115/47
[2019-09-05 05:59] LABS: BASOPHILS 0.2 % (0-2); EOSINOPHILS 1.7 % (0-7); HEMATOCRIT 32.2 % (42.0-54.0); HEMOGLOBIN 10.3 g/dL (13.5-17.5); IMMATURE GRANULOCYTES 0.4 % (0-5); LYMPHOCYTES 19.5 % (15-50); MCH 27.2 pg (26.0-34.0); MCV 85.2 fL (80.0-100.0); MEAN PLATELET VOLUME 10.6 fL (7.4-10.4); NEUTROPHILS 71.2 % (40-80); PLATELET COUNT 79 10x3/uL (130-400); RBC 3.78 10x6/uL (4.20-6.10); RDW 14.6 % (11.5-14.5)
[2019-09-05 06:07] LABS: ANION GAP 13.2 mmol/L (8-16); CALCIUM 7.8 mg/dL (8.5-10.1); CARBON DIOXIDE 22.7 mmol/L (21.0-32.0); CREATININE - SERUM 1.2 mg/dL (0.6-1.3); MAGNESIUM - SERUM 1.9 mg/dL (1.8-2.4); PHOSPHOROUS 2.9 mg/dL (2.5-4.9); POTASSIUM - SERUM 3.9 mmol/L (3.5-5.1)
--- NOTE | 2019-09-05 06:26 | NUR ---
VSS THROUGHOUT NIGHT. SR/SB PER CM. PT RESTING WITH EYES CLOSED. RESP EVEN AND REGULAR. PT OPENS EYES TO PHYSICAL STIMULI BUT QUICKLY FALLS BACK TO SLEEP. NEEDS MET; WILL CONTINUE TO MONITOR.
[2019-09-05 07:06] LABS: WBC 5.3 10x3/uL (4.8-10.8)
[2019-09-05 08:03] VITALS: BP 122/55
[2019-09-05 10:40] LABS: PLATELET ESTIMATE DECREASED
[2019-09-05 10:41] LABS: ROULEAUX OCC
--- NOTE | 2019-09-05 10:42 | NUR ---
PT WITH COMPLAINT OF PAIN TO COCCYX. WOUND IN PLACE THAT IS OLD SCARRING AND BRUISING FROM PRIOR WOUND. MEPALEX CHANGED AND IN PLACE. POSITIONED Q2 HOURS FOR COMFORT.
--- NOTE | 2019-09-05 11:31 | NUR ---
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 This area is red, moist and open on left buttock - there is no depth. Bruising and blanchable redness is noted on right buttock. Entire area measures 12cm x 10cm. Areas of healed skin are noted. There is scant bloody drainage from open area on left buttock and no odor is noted. This is a healing stage 4 pressure injury. Recommendations: Turn/reposition q 2 hours Daily and as needed pericare d/t incontinence Float heels Mepilex sacral dressing to protect bottom (changing q 3 days and as needed if soiled/dislodged) Wound care continues to monitor.
[2019-09-05 12:04] VITALS: BP 112/45
--- NOTE | 2019-09-05 13:12 | NUR ---
UPON ADMIT, LIONEL HAS NOT HAD A FLU SHOT. UPON DISCHARGE, PATIENT STATES THAT HE DOES NOT KNOW IF HE HAS HAD A FLU SHOT OR NOT.
[2019-09-05 14:57] VITALS: BP 125/56
--- NOTE | 2019-09-05 16:26 | MORECARE ---
CASE MANAGEMENT DISCHARGE SUMMARY PATIENT: AMARI MENDEZ UNIT: [id number] ADM DATE: 09/02/19 AGE: 78 : 38 SEX: M ROOM/BED: D.8 AUTHOR: FAYE MOSS PHYSICIAN: REFERRING PHYSICIAN: JOSE ALEJANDRO KIDD MD DATE OF SERVICE: 09/05/19 Discharge Plan Patient Name: AMARI MENDEZ [facility] [facility] 1940 Planned Disposition: Inpatient Rehab Anticipated Discharge Date: Discharge Date: Expected LOS: Initial Reviewer: [id number] Initial Review Date: 09/05/2019 Generated: 09/05/19 5:26 pm External Providers External Provider: OTHER-OTHER Next Contact Date: Service Request Date: Service Type: Resolution: Reviewer: Comments: Patient Name: AMARI MENDEZ Page 05611 at 1626 All edits/amendments must be made on the electronic document DICTATION DATE: 09/05/191625 PRINCIPAL NETWORK ENGINEER: NEAL 09/05/19 1626 RPT#: [id number] DC DATE: STATUS: ADM IN [facility] [address] [place] [address] END OF REPORT
--- NOTE | 2019-09-05 16:34 | MORECARE ---
CASE MANAGEMENT DISCHARGE SUMMARY PATIENT: AMARI MENDEZ UNIT: [id number] ADM DATE: 09/02/19 AGE: 78 : 38 SEX: M ROOM/BED: D.2128 AUTHOR: FAYE MOSS PHYSICIAN: REFERRING PHYSICIAN: JOSE ALEJANDRO KIDD MD DATE OF SERVICE: 09/05/19 Discharge Plan Patient Name: AMARI MENDEZ [facility] [facility] 1940 Planned Disposition: Inpatient Rehab Anticipated Discharge Date: Discharge Date: Expected LOS: Initial Reviewer: [email or web address] Initial Review Date: 09/05/2019 Generated: 09/05/19 5:34 pm DCPIA - Discharge Planning Initial Assessment Updated by [email or web address]: Lyn Olivares on 09/05/19 4:30 pm * Is the patient Alert and Oriented? No * How many steps to enter\exit or inside your home? 2/0 * PCP [place] * Pharmacy [place] * Preadmission Environment Hospice * Facility Name [facility] * ADLs Total Dependent * Equipment Bedside [facility] Bed Nebulizer Oxygen Rolling Walker Shower Chair Wheelchair * List name and contact numbers for known caregivers / representatives who currently or will assist patient after discharge: Latricia [phone] * Verbal permission to speak to the caregivers and representatives has been obtained from the patient. Yes * Community resources currently utilized Hospice Home * Please name any agencies selected above. [facility] * Additional services required to return to the preadmission environment? Yes * Can the patient safely return to the preadmission environment? No * Has this patient been hospitalized within the prior 30 days at any hospital? No Last DP export: 09/05/19 3:26 p Patient Name: AMARI MENDEZ Page [id number] at 1634 All edits/amendments must be made on the electronic document DICTATION DATE: 09/05/191633 SOUND CONTROLLER: NEAL 09/05/191633 RPT#: [id number] DC DATE: STATUS: ADM IN [facility] [address] [place] [address] END OF REPORT
--- NOTE | 2019-09-05 16:41 | MORECARE ---
CASE MANAGEMENT DISCHARGE SUMMARY PATIENT: AMARI MENDEZ UNIT: [id number] ADM DATE: 09/02/19 AGE: 78 : 38 SEX: M ROOM/BED: D.2833 AUTHOR: AJAYDOC PHYSICIAN: REFERRING PHYSICIAN: JOSE ALEJANDRO KIDD MD DATE OF SERVICE: 09/05/19 Discharge Plan Patient Name: AMARI MENDEZ Facility: [facility]:[place] : 1940 Planned Disposition: Inpatient Rehab Anticipated Discharge Date: Discharge Date: Expected LOS: Initial Reviewer: [email or web address] Initial Review Date: 09/05/2019 Generated: 09/05/19 5:41 pm Comments DCP- Discharge Planning Updated by [id number]: Lyn Olivares on 09/05/19 3:[address] Patient Name: AMARI MENDEZ Admission Status: ER Accout number: [id number] Admission Date: 09-02-2019 : 1940 Admission Diagnosis: Attending: MARTI, Current LOS: 3 Anticipated DC Date: Planned Disposition: Inpatient Rehab Primary Insurance: MEDICARE A & B Discharge Planning Comments: CM met with patient to complete initial dc planning assessment. The patient is confused and partially responsive. Called [facility] hospice for working phone number for the patient family. CM educated patient granddaughter (Latricia) on the CM role and verbal consent given by family to complete assessment. CM verified patient's address, phone number, and emergency contact phone numbers. Patient is currently in home hospice with [facility], but would like to go to the rehab in [place] before going home and resuming hospice. LAINA form signed by patient for [facility]. Signed form placed in chart and signed form given to patient. Patient denied further known discharge needs at this time. CM will continue to follow and will assist as needed with dc plans/needs. IMM delivered, explained, signed by the patient, and placed in his chart. Signed form also left with patient. Customer Support Executive: Lyn Olivares DCPIA - Discharge Planning Initial Assessment Updated by [id number]: Lyn Olivares on 09/05/19 4:30 pm * Is the patient Alert and Oriented? No * How many steps to enter\exit or inside your home? 2/0 * PCP [facility] * Pharmacy [facility] * Preadmission Environment Hospice * Facility [facility] * ADLs Total Dependent * Equipment Bedside [facility] Bed Nebulizer Oxygen Rolling Walker Shower Chair Wheelchair * List name and contact numbers for known caregivers / representatives who currently or will assist patient after discharge: Latricia [phone] * Verbal permission to speak to the caregivers and representatives has been obtained from the patient. Yes * Community resources currently utilized Hospice Home * Please name any agencies selected above. [facility] * Additional services required to return to the preadmission environment? Yes * Can the patient safely return to the preadmission environment? No * Has this patient been hospitalized within the prior 30 days at any hospital? No Last DP export: 09/05/19 3:34 p Patient Name: AMARI MENDEZ Page 42094 at 1641 All edits/amendments must be made on the electronic document DICTATION DATE: 09/05/191640 MEDICAL TECHNICIANS: NEAL 09/05/191640 RPT#: [id number] DC DATE: STATUS: ADM IN [facility] [address] [place] [address] END OF REPORT
--- NOTE | 2019-09-05 16:55 | NUR ---
PT'S FAMILY WITH UPDATED CONTACT INFO. SON (MINNIE) NUMBER IN EMERGENCY CONTACT. DIAZ (GRANDDAUGHTER) NUMBER ALSO IN CONTACT LIST. IF NEEDED, MICHAEL MENEDZ ALSO CAN BE REACHED AT [phone].
--- NOTE | 2019-09-05 17:37 | MORECARE ---
CASE MANAGEMENT DISCHARGE SUMMARY PATIENT: AMARI MENDEZ UNIT: [id number] ADM DATE: 09/02/19 AGE: 78 : 38 SEX: M ROOM/BED: D.2390 AUTHOR: AJAYDOC PHYSICIAN: REFERRING PHYSICIAN: JOSE ALEJANDRO KIDD MD DATE OF SERVICE: 09/05/19 Discharge Plan Patient Name: AMARI MENDEZ Facility: [facility]:[place] : 1940 Planned Disposition: Inpatient Rehab Anticipated Discharge Date: 09/06/19 Discharge Date: Expected LOS: 4 Initial Reviewer: [email or web address] Initial Review Date: 09/05/2019 Generated: 09/05/19 6:36 pm Comments DCP- Discharge Planning Updated by [email or web address]: Lyn Olivares on 09/05/19 3:[address] Patient Name: AMARI MENDEZ Admission Status: ER Accout number: [id number] Admission Date: 09-02-2019 : 1940 Admission Diagnosis: Attending: MARTI, Current LOS: 3 Anticipated DC Date: Planned Disposition: Inpatient Rehab Primary Insurance: MEDICARE A & B Discharge Planning Comments: CM met with patient to complete initial dc planning assessment. The patient is confused and partially responsive. Called [facility] hospice for working phone number for the patient family. CM educated patient granddaughter (Latricia) on the CM role and verbal consent given by family to complete assessment. CM verified patient's address, phone number, and emergency contact phone numbers. Patient is currently in home hospice with [facility], but would like to go to the rehab in [place] before going home and resuming hospice. LAINA form signed by patient for [facility]. Signed form placed in chart and signed form given to patient. Patient denied further known discharge needs at this time. CM will continue to follow and will assist as needed with dc plans/needs. IMM delivered, explained, signed by the patient, and placed in his chart. Signed form also left with patient. Belt Back Operator: Lyn Olivares DCPIA - Discharge Planning Initial Assessment Updated by [id number]: Lyn Olivares on 09/05/19 4:30 pm * Is the patient Alert and Oriented? No * How many steps to enter\exit or inside your home? 2/0 * PCP [place] * Pharmacy [place] * Preadmission Environment Hospice * Facility Name [facility] hospice * ADLs Total Dependent * Equipment Bedside [facility] Bed Nebulizer Oxygen Rolling Walker Shower Chair Wheelchair * List name and contact numbers for known caregivers / representatives who currently or will assist patient after discharge: Latricia [phone] * Verbal permission to speak to the caregivers and representatives has been obtained from the patient. Yes * Community resources currently utilized Hospice Home * Please name any agencies selected above. [facility] * Additional services required to return to the preadmission environment? Yes * Can the patient safely return to the preadmission environment? No * Has this patient been hospitalized within the prior 30 days at any hospital? No Coverage Notice Reviewer: [id number] Ann Olivares Notice Issued Date-Time: 09/05/2019 14:13 Notice Type: IM Discharge Notice Notice Delivered To: Family Member Relationship to Patient: Maylin Inside [employer] Sales Name: Latricia Delivery Method: HAND - Hand Delivered Mai Days: Prior Verbal Notification: Recipient Understood Notice: Yes Recipient Signature: Yes Med Rec Note Co-signed by Attending: Coverage Notice Comment: IMM delivered, explained, signed by the patient, and placed in his chart. Signed form also left with patient. Reviewer: [email or web address] Colton Olivares Notice Issued Date-Time: 09/05/2019 14:13 Notice Type: Patient Choice Letter Notice Delivered To: Family Member Relationship to Patient: dadarryl Inside [employer] Sales Name: Latricia Delivery Method: HAND - Hand Delivered Mai Days: Prior Verbal Notification: Recipient Understood Notice: Yes Recipient Signature: Yes Med Rec Note Co-signed by Attending: Coverage Notice Comment: [facility] Last DP export: 09/05/19 3:41 p Patient Name: AMARI MENDEZ Page 49543 at 1737 All edits/amendments must be made on the electronic document DICTATION DATE: 09/05/191736 MACHINE HEEL BUILDER: NEAL 09/05/191736 RPT#: [id number] DC DATE: STATUS: ADM IN [facility] [address] [place] [address] END OF REPORT
--- NOTE | 2019-09-05 17:46 | MORECARE ---
CASE MANAGEMENT DISCHARGE SUMMARY PATIENT: AMARI MENDEZ UNIT: [id number] ADM DATE: 09/02/19 AGE: 78 : 38 SEX: M ROOM/BED: D.2128 AUTHOR: AJAY,DOC PHYSICIAN: REFERRING PHYSICIAN: JOSE ALEJANDRO KIDD MD DATE OF SERVICE: 09/05/19 Discharge Plan Patient Name: AMARI MENDEZ Facility: [facility]:[place] : 1940 Planned Disposition: Inpatient Rehab Anticipated Discharge Date: 09/06/19 Discharge Date: Expected LOS: 4 Initial Reviewer: [email or web address] Initial Review Date: 09/05/2019 Generated: 09/05/19 6:46 pm Comments DCP- Discharge Planning Updated by [id number]: William Hernandez on 09/05/19 4:[address] Patient Name: AMARI MENDEZ Admission Status: ER Accout number: [id number] Admission Date: 09-02-2019 : 1940 Admission Diagnosis: Attending: MARTI, Current LOS: 3 Anticipated DC Date: 09-06-2019 Planned Disposition: Inpatient Rehab Primary Insurance: MEDICARE A & B PLANNED EXTERNAL PROVIDER; [facility] Discharge Planning Comments: CM RECEIVED CALL FROM [facility]NAY OF [facility], THEY WILL ACCEPT PT 09-06-19, [facility] WILL NOT PROVIDE TRANSPORTATION; RENAY SUGGESTED THAT IF FAMILY CAN TRANSPORT, THEY CAN ASSIST WITH GETTING PT OUT OF CAR AT THE REHAB. CM TO FOLLOW UP WITH FAMILY REGARDING TRANSPORTATION. FOR DISCHARGE 09-06-19, FAX DISCHARGE INFORMATION TO [facility] AT [phone], NURSE REPORT TO BE CALLED TO [facility] AT [phone]. FAMILY TO TRANSPORT IF PT IS ABLE TO SIT SAFELY FOR DURATION OF APPROXIMATELY 2 HOUR TRANSPORT TO [facility]. Print Binding Worker: William Hernandez DCP- Discharge Planning Updated by [id number]: Lyn Olivares on 09/05/19 3:[address] Patient Name: AMARI MENDEZ Admission Status: ER Accout number: [id number] Admission Date: 09-02-2019 : 1940 Admission Diagnosis: Attending: MARTI, Current LOS: 3 Anticipated DC Date: Planned Disposition: Inpatient Rehab Primary Insurance: MEDICARE A & B Discharge Planning Comments: CM met with patient to complete initial dc planning assessment. The patient is confused and partially responsive. Called [facility] for working phone number for the patient family. CM educated patient granddaughter (Latricia) on the CM role and verbal consent given by family to complete assessment. CM verified patient's address, phone number, and emergency contact phone numbers. Patient is currently in home hospice with [facility], but would like to go to the rehab in [place] before going home and resuming hospice. LAINA form signed by patient for [facility]. Signed form placed in chart and signed form given to patient. Patient denied further known discharge needs at this time. CM will continue to follow and will assist as needed with dc plans/needs. IMM delivered, explained, signed by the patient, and placed in his chart. Signed form also left with patient. Print Binding Worker: Lyn Olivares DCPIA - Discharge Planning Initial Assessment Updated by [email or web address]: Lyn Olivares on 09/05/19 4:30 pm * Is the patient Alert and Oriented? No * How many steps to enter\exit or inside your home? 2/0 * PCP [place] * Pharmacy [place] * Preadmission Environment Hospice * Facility Name [facility] * ADLs Total Dependent * Equipment Bedside [facility] Bed Nebulizer Oxygen Rolling Walker Shower Chair Wheelchair * List name and contact numbers for known caregivers / representatives who currently or will assist patient after discharge: Latricia [phone] * Verbal permission to speak to the caregivers and representatives has been obtained from the patient. Yes * Community resources currently utilized [facility]ospice Home * Please name any agencies selected above. [facility] * Additional services required to return to the preadmission environment? Yes * Can the patient safely return to the preadmission environment? No * Has this patient been hospitalized within the prior 30 days at any hospital? No Coverage Notice Reviewer: [id number] - Lyn Olivares Notice Issued Date-Time: 09/05/2019 14:13 Notice Type: IM Discharge Notice Notice Delivered To: Family Member Relationship to Patient: daughter Respiratory Therapy Director Name: Latricia Delivery Method: HAND - Hand Delivered Mai Days: Prior Verbal Notification: Recipient Understood Notice: Yes Recipient Signature: Yes Med Rec Note Co-signed by Attending: Coverage Notice Comment: IMM delivered, explained, signed by the patient, and placed in his chart. Signed form also left with patient. Reviewer: [id number] Colton Olivares Notice Issued Date-Time: 09/05/2019 14:13 Notice Type: Patient Choice Letter Notice Delivered To: Family Member Relationship to Patient: Granddaughter Respiratory Therapy Director Name: Latricia Delivery Method: HAND - Hand Delivered Mai Days: Prior Verbal Notification: Recipient Understood Notice: Yes Recipient Signature: Yes Med Rec Note Co-signed by Attending: Coverage Notice Comment: [facility] Last DP export: 09/05/19 4:37 p Patient Name: AMARI MENDEZ Page [id number] at 1746 All edits/amendments must be made on the electronic document DICTATION DATE: 09/05/191745 SEO MANAGER: NEAL 09/05/191745 RPT#: [id number] DC DATE: STATUS: ADM IN [facility] [address] [place] [address] END OF REPORT
--- NOTE | 2019-09-05 19:21 | NUR ---
EVENING ROUNDS COMPLETE. PT LAYING IN BED. NO SIGNS OF DISTRESS. PT REQUEST FOR SOMETHING TO DRINK. ASSISTED PT WITH HIS WATER. NO OTHER NEEDS VOICED AT THIS TIME. PT DENIES ANY PAIN. CL IN REACH, BED IN LOWEST POSITION.
[2019-09-05 20:00] VITALS: BP 130/61
[2019-09-06] VITALS: BP 127/58
[2019-09-06 04:00] VITALS: BP 124/62
[2019-09-06 05:13] LABS: BASOPHILS 0.2 % (0-2); EOSINOPHILS 1.4 % (0-7); HEMATOCRIT 32.7 % (42.0-54.0); HEMOGLOBIN 10.5 g/dL (13.5-17.5); IMMATURE GRANULOCYTES 0.6 % (0-5); LYMPHOCYTES 25.8 % (15-50); MCH 27.3 pg (26.0-34.0); MCHC 32.1 g/dL (31.0-37.0); MCV 85.2 fL (80.0-100.0); MEAN PLATELET VOLUME 10.8 fL (7.4-10.4); MONOCYTES 6.4 % (2-11); NEUTROPHILS 65.6 % (40-80); PLATELET COUNT 75 10x3/uL (130-400); RBC 3.84 10x6/uL (4.20-6.10); RDW 14.3 % (11.5-14.5); WBC 4.9 10x3/uL (4.8-10.8)
[2019-09-06 05:40] LABS: ANION GAP 10.7 mmol/L (8-16); CARBON DIOXIDE 23.9 mmol/L (21.0-32.0); CREATININE - SERUM 1.2 mg/dL (0.6-1.3); MAGNESIUM - SERUM 1.8 mg/dL (1.8-2.4); PHOSPHOROUS 2.8 mg/dL (2.5-4.9); POTASSIUM - SERUM 3.6 mmol/L (3.5-5.1)
--- NOTE | 2019-09-06 07:40 | NUR ---
ASSESSMENT DONE. DENIES NEEDS
[2019-09-06 09:01] VITALS: BP 124/61
--- NOTE | 2019-09-06 10:52 | NUR ---
I have reviewed this patient and I concur with the Shift Assessment completed by the Licensed Practical Nurse today this shift.
--- NOTE | 2019-09-06 11:24 | CN ---
PATIENT NAME:AMARI MACHADO MEDICAL RECORD: [id number] : 36 LOCATION:. D.2128 ADMIT DATE: 09/02/19 ACCOUNT: [id number] CONSULTING PHYSICIAN: PARKER RAM MD REFERRING PHYSICIAN: JOSEA LEJANDRO KIDD MD DATE OF CONSULTATION: 09/03/2019 CARDIOLOGY CONSULTATION DIAGNOSES: 1. Elevated troponin. 2. Non-Q-wave myocardial infarction. 3. Urosepsis. 4. Parkinson's. 5. Hypotension. 6. History of hypertension. 7. Chronic obstructive pulmonary disease. 8. Smoking. HISTORY OF PRESENT ILLNESS: Mr. Machado was transferred from [facility] with urosepsis, severe Parkinson disease, and an elevated troponin. He presented there with the urosepsis, shortness of breath. He denies any chest discomfort, although he is a very poor historian. His EKG is with no acute ST-T abnormalities. EKG is difficult to interpret secondary to the tremor from the Parkinson's, but there does not appear to be any acute ST-T abnormalities. He denies any chest pain now. PHYSICAL EXAMINATION: CONSTITUTIONAL/GENERAL APPEARANCE: Well nourished, well developed, appears stated age. EYES: Lids and conjunctivae noninjected. No discharge. No pallor. ENT: Lips within normal limit. No cyanosis. No pallor. NECK: Carotid arteries, bilateral normal upstroke. No bruits. No thrills. No jugular venous pressure or distention. CERVICAL LYMPH NODES: Nontender. Nonenlarged. THYROID: Not enlarged. No nodules. CARDIOVASCULAR: Precordial exam, nondisplaced. No heaves or pericardial thrills. Rate and rhythm, regular. Heart sounds, normal S1, normal S2. No S3, no gallop, no rub. Systolic murmur, not heard. Diastolic murmur, not heard. RESPIRATORY: Respiratory effort, unlabored. Normal curvature. No thoracic deformity. No chest wall tenderness. Percussion, resonant. Auscultation, clear. No wheezes, no rales, no rhonchi. ABDOMEN: Soft, nondistended, nontender. No abdominal pain, no vomiting and normal appetite. MUSCULOSKELETAL: No joint tenderness, normal gait, normal tone. SKIN: Warm and dry. OVERALL IMPRESSION: Non-Q-wave myocardial infarction, most likely demand ischemia from the sepsis and the hypotension. We will get an echocardiogram, other than that no other cardiac workup or treatment should be necessary. TRANSINT:[id number] Voice Confirmation ID: [id number] DOCUMENT ID: [id number] CONSULT REPORT [id number] AMARI MACHADO, PARKER CENTENO at 1124 CC: [id number] DICTATION DATE: 09/03/19920 PIPE ORGAN TUNER AND REPAIRER: 09/03/19 1048 ADM IN [place] [id number] [place] [id number]
--- NOTE | 2019-09-06 11:25 | EC ---
PATIENT:AMARI MENDEZ DATE OF SERVICE: 09/02/19 SEX: M MEDICAL RECORD: [id number] DATE OF : [birth year] LOCATION:D.M2 D.212 AGE OF PATIENT: 78 ADMISSION DATE: 09/02/19 REFERRING PHYSICIAN: INTERPRETING PHYSICIAN: PARKER PALACIO MD ECHOCARDIOGRAM REPORT ECHO CHARGES 4 ECHO COMPLETE Date: 09/03/19 CLINICAL DIAGNOSIS: ID ECHOCARDIOGRAPHIC MEASUREMENTS (adult normal given) AC root (d.<3.7cm) 3.5 cm LV Septum d (<1.2 cm> 1.6 cm Valve Excursion 2.2 cm LV Septum (systole) 2.0 cm Left Atria (s.<4.0cm> 3.6 cm LVPW d(<1.2cm) 1.3 cm RV (d.<2.3cm) 2.4 cm LVPW (sytole) 2.0 cm LV diastole(<5.6CM) 5.3 cm MV E-F(>70mm/sec) cm LV systole 3.6 cm LVOT Diameter 2.0 cm MV exc.(>10mm) cm Est.ejection fraction (50-75%) % DOPPLER: LVIT cm/sec A 69.0 cm/sec E 46.0 cm/sec LA cm/sec RVSP 22.0 mmHg LVOT 95.0 cm/sec AOP1/2T m/s Asc. Ao 124 cm/sec RVOT 81.0 cm/sec RA cm/sec PA 105 cm/sec AV Gradient Peak 6.2 mmHg AV Mean 3.1 mmHg AV Area 2.6 cm MV Gradient Peak 2.9 mmHg MV Mean 1.1 mmHg MV Area cm COMMENTS: Wind Turbine Controls Engineer: 1 CLAIRE GORDONOE Foundry Metallurgist: 1 Dr. Palacio TAPE# PACS Pericardial Effusion N DATE OF SERVICE: FINDINGS: 1. Left ventricular chamber size is within normal limits. Left ventricular systolic function is normal. Overall ejection fraction estimated at 55%. 2. Left atrium is within normal limits at 3.6 cm. Right atrium and right ventricle chamber sizes are mildly dilated. 3. Valvular structures have normal structure and motion. 4. Doppler interrogation reveals [id number] mitral regurgitation, no other valvular insufficiency or stenosis. Pulmonary systolic pressure estimated ECHOCARDIOGRAM REPORT [id number] AMARI MENDEZ at 22 mmHg. 5. No evidence of pericardial effusion or left ventricular thrombus. TRANSINT:[id number] Voice Confirmation ID: [id number] DOCUMENT ID: [id number] PARKER PALACIO MD at 1125 CC: [id number] DICTATION DATE: 09/04/19 1219 RISK ADJUSTMENT SPECIALIST: 09/04/192020 ADM IN [facility] [address] [place] [address]
--- NOTE | 2019-09-06 11:32 | MORECARE ---
CASE MANAGEMENT DISCHARGE SUMMARY PATIENT: AMARI MACHADO UNIT: [id number] ADM DATE: 09/02/19 AGE: 78 : 38 SEX: M ROOM/BED: D.2128 AUTHOR: AJAY,DOC PHYSICIAN: REFERRING PHYSICIAN: JOSE ALEJANDRO KIDD MD DATE OF SERVICE: 09/06/19 Discharge Plan Patient Name: AMARI MACHADO Facility: [facility]:[place] : 1940 Planned Disposition: Inpatient Rehab Anticipated Discharge Date: 09/06/19 Discharge Date: Expected LOS: 4 Initial Reviewer: [id number] Initial Review Date: 09/05/2019 Generated: 09/06/19 12:31 pm Comments DCP- Discharge Planning Updated by [id number]: William Hernandez on 09/05/19 4:[address] Patient Name: AMARI MACHADO Admission Status: ER Accout number: [id number] Admission Date: 09-02-2019 : 1940 Admission Diagnosis: Attending: MARTI, Current LOS: 3 Anticipated DC Date: 09-06-2019 Planned Disposition: Inpatient Rehab Primary Insurance: MEDICARE A & B PLANNED EXTERNAL PROVIDER; [facility] Discharge Planning Comments: CM RECEIVED CALL FROM [facility]NAY OF [facility], THEY WILL ACCEPT PT 09-06-19, [facility] WILL NOT PROVIDE TRANSPORTATION; RENAY SUGGESTED THAT IF FAMILY CAN TRANSPORT, THEY CAN ASSIST WITH GETTING PT OUT OF CAR AT THE REHAB. CM TO FOLLOW UP WITH FAMILY REGARDING TRANSPORTATION. FOR DISCHARGE 09-06-19, FAX DISCHARGE INFORMATION TO [facility] AT [phone], NURSE REPORT TO BE CALLED TO [facility] AT [phone]. FAMILY TO TRANSPORT IF PT IS ABLE TO SIT SAFELY FOR DURATION OF APPROXIMATELY 2 HOUR TRANSPORT TO [facility]. Nuclear Weapons Custodian: William Hernandez DCP- Discharge Planning Updated by [id number]: Lyn Olivares on 09/05/19 3:[address] Patient Name: AMARI MACHADO Admission Status: ER Accout number: [id number] Admission Date: 09-02-2019 : 1940 Admission Diagnosis: Attending: MARTI, Current LOS: 3 Anticipated DC Date: Planned Disposition: Inpatient Rehab Primary Insurance: MEDICARE A & B Discharge Planning Comments: CM met with patient to complete initial dc planning assessment. The patient is confused and partially responsive. Called [facility] for working phone number for the patient family. CM educated patient granddaughter (Latricia) on the CM role and verbal consent given by family to complete assessment. CM verified patient's address, phone number, and emergency contact phone numbers. Patient is currently in home hospice with [facility], but would like to go to the rehab in [place] before going home and resuming hospice. LAINA form signed by patient for [facility]. Signed form placed in chart and signed form given to patient. Patient denied further known discharge needs at this time. CM will continue to follow and will assist as needed with dc plans/needs. IMM delivered, explained, signed by the patient, and placed in his chart. Signed form also left with patient. Nuclear Weapons Custodian: Lyn Olivares DCPIA - Discharge Planning Initial Assessment Updated by [id number]: William Hernandez on 09/06/19 11:28 am * Is the patient Alert and Oriented? No * How many steps to enter\exit or inside your home? 2/0 * PCP [place] * Pharmacy [place] * Preadmission Environment Hospice * Facility Name [facility] * ADLs Total Dependent * Equipment [facility]side [facility] Bed Nebulizer Oxygen Rolling Walker Shower Chair Wheelchair * List name and contact numbers for known caregivers / representatives who currently or will assist patient after discharge: Latricia Machado, ximenaughter, * Verbal permission to speak to the caregivers and representatives has been obtained from the patient. Yes * Community resources currently utilized Hospice Home * Please name any agencies selected above. [facility] * Additional services required to return to the preadmission environment? Yes * Can the patient safely return to the preadmission environment? No * Has this patient been hospitalized within the prior 30 days at any hospital? No Coverage Notice Reviewer: [id number] - Lyn Olivares Notice Issued Date-Time: 09/05/2019 14:13 Notice Type: IM Discharge Notice Notice Delivered To: Family Member Relationship to Patient: Maylin Cream Cheese Maker Name: Latricia Delivery Method: HAND - Hand Delivered Mai Days: Prior Verbal Notification: Recipient Understood Notice: Yes Recipient Signature: Yes Med Rec Note Co-signed by Attending: Coverage Notice Comment: IMM delivered, explained, signed by the patient, and placed in his chart. Signed form also left with patient. Reviewer: [id number] Colton Olivares Notice Issued Date-Time: 09/05/2019 14:13 Notice Type: Patient Choice Letter Notice Delivered To: Family Member Relationship to Patient: Granddaughter Cream Cheese Maker Name: Latricia Delivery Method: HAND - Hand Delivered Mai Days: Prior Verbal Notification: Recipient Understood Notice: Yes Recipient Signature: Yes Med Rec Note Co-signed by Attending: Coverage Notice Comment: [facility] Last DP export: 09/05/19 4:46 p Patient Name: AMARI MACHADO Page [id number] at 1132 All edits/amendments must be made on the electronic document DICTATION DATE: 09/06/19 113 WEIGHING STATION OPERATOR: NEAL 09/06/19 1131 RPT#: [id number] DC DATE: STATUS: ADM IN [address] [place] [address] END OF REPORT
--- NOTE | 2019-09-06 11:47 | MORECARE ---
CASE MANAGEMENT DISCHARGE SUMMARY PATIENT: AMARI MACHADO UNIT: [id number] ADM DATE: 09/02/19 AGE: 78 : 38 SEX: M ROOM/BED: D.2128 AUTHOR: AJAY,DOC PHYSICIAN: REFERRING PHYSICIAN: JOSE ALEJANDRO KIDD MD DATE OF SERVICE: 09/06/19 Discharge Plan Patient Name: AMARI MACHADO Facility: [facility]:[place] : 1940 Planned Disposition: Inpatient Rehab Anticipated Discharge Date: 09/06/19 Discharge Date: Expected LOS: 4 Initial Reviewer: [id number] Initial Review Date: 09/05/2019 Generated: 09/06/19 12:47 pm Comments DCP- Discharge Planning Updated by [id number]: William Hernandez on 09/05/19 4:[address] Patient Name: AMARI MACHADO Admission Status: ER Accout number: [id number] Admission Date: 09-02-2019 : 1940 Admission Diagnosis: Attending: MARTI, Current LOS: 3 Anticipated DC Date: 09-06-2019 Planned Disposition: Inpatient Rehab Primary Insurance: MEDICARE A & B PLANNED EXTERNAL PROVIDER; [facility] Discharge Planning Comments: CM RECEIVED CALL FROM [facility]NAY OF [facility], THEY WILL ACCEPT PT 09-06-19, [facility] WILL NOT PROVIDE TRANSPORTATION; RENAY SUGGESTED THAT IF FAMILY CAN TRANSPORT, THEY CAN ASSIST WITH GETTING PT OUT OF CAR AT THE REHAB. CM TO FOLLOW UP WITH FAMILY REGARDING TRANSPORTATION. FOR DISCHARGE 09-06-19, FAX DISCHARGE INFORMATION TO [facility] AT [phone], NURSE REPORT TO BE CALLED TO [facility] AT [phone]. FAMILY TO TRANSPORT IF PT IS ABLE TO SIT SAFELY FOR DURATION OF APPROXIMATELY 2 HOUR TRANSPORT TO [facility]. Food Cart Attendant: William Hernandez DCP- Discharge Planning Updated by [id number]: Lyn Olivares on 09/05/19 3:[address] Patient Name: AMARI MACHADO Admission Status: ER Accout number: [id number] Admission Date: 09-02-2019 : 1940 Admission Diagnosis: Attending: MARTI, Current LOS: 3 Anticipated DC Date: Planned Disposition: Inpatient Rehab Primary Insurance: MEDICARE A & B Discharge Planning Comments: CM met with patient to complete initial dc planning assessment. The patient is confused and partially responsive. Called [facility] hospice for working phone number for the patient family. CM educated patient granddaughter (Latricia) on the CM role and verbal consent given by family to complete assessment. CM verified patient's address, phone number, and emergency contact phone numbers. Patient is currently in home hospice with [facility], but would like to go to the rehab in [place] before going home and resuming hospice. LAINA form signed by patient for [facility]. Signed form placed in chart and signed form given to patient. Patient denied further known discharge needs at this time. CM will continue to follow and will assist as needed with dc plans/needs. IMM delivered, explained, signed by the patient, and placed in his chart. Signed form also left with patient. Food Cart Attendant: Lyn Olivares DCPIA - Discharge Planning Initial Assessment Updated by [id number]: William Hernandez on 09/06/19 11:41 am * Is the patient Alert and Oriented? No * How many steps to enter\exit or inside your home? 2/0 * PCP [place] * Pharmacy [place] * Preadmission Environment Hospice * Facility Name [facility] * ADLs Total Dependent * Equipment Bedside [facility] Bed Nebulizer Oxygen Rolling Walker Shower Chair Wheelchair * List name and contact numbers for known caregivers / representatives who currently or will assist patient after discharge: Khai Machado, Son and Dtr in Law, Latricia Machado, granddaughter, * Verbal permission to speak to the caregivers and representatives has been obtained from the patient. Yes * Community resources currently utilized Hospice Home * Please name any agencies selected above. [facility] * Additional services required to return to the preadmission environment? Yes * Can the patient safely return to the preadmission environment? No * Has this patient been hospitalized within the prior 30 days at any hospital? No Coverage Notice Reviewer: [id number] - Lyn Olivares Notice Issued Date-Time: 09/05/2019 14:13 Notice Type: IM Discharge Notice Notice Delivered To: Family Member Relationship to Patient: Granddaughter Human Resources Office Assistant Name: Latricia Delivery Method: HAND - Hand Delivered Mai Days: Prior Verbal Notification: Recipient Understood Notice: Yes Recipient Signature: Yes Med Rec Note Co-signed by Attending: Coverage Notice Comment: IMM delivered, explained, signed by the patient, and placed in his chart. Signed form also left with patient. Reviewer: [id number] Colton Olivares Notice Issued Date-Time: 09/05/2019 14:13 Notice Type: Patient Choice Letter Notice Delivered To: Family Member Relationship to Patient: Granddaughter Human Resources Office Assistant Name: Latricia Delivery Method: HAND - Hand Delivered Mai Days: Prior Verbal Notification: Recipient Understood Notice: Yes Recipient Signature: Yes Med Rec Note Co-signed by Attending: Coverage Notice Comment: [facility] Last DP export: 09/06/19 10:32 a Patient Name: AMARI MACHADO Page [phone] at 1147 All edits/amendments must be made on the electronic document DICTATION DATE: 09/06/19 1147 MARBLE CUTTER: NEAL 09/06/19 1147 RPT#: [id number] DC DATE: STATUS: ADM IN [facility] [address] [place] [address] END OF REPORT
--- NOTE | 2019-09-06 12:00 | NUR ---
REPORT CALLED TO DEN[facility] IN REHAB
--- NOTE | 2019-09-06 12:08 | MORECARE ---
CASE MANAGEMENT DISCHARGE SUMMARY PATIENT: AMARI MACHADO UNIT: [id number] ADM DATE: 09/02/19 AGE: 78 : 36 SEX: M ROOM/BED: D.2128 AUTHOR: AJAY,DOC PHYSICIAN: REFERRING PHYSICIAN: JOSE ALEJANDRO KIDD MD DATE OF SERVICE: 09/06/19 Discharge Plan Patient Name: AMARI MACHADO Facility: [facility]:[place] : 1940 Planned Disposition: Inpatient Rehab Anticipated Discharge Date: 09/06/19 Discharge Date: Expected LOS: 4 Initial Reviewer: [id number] Initial Review Date: 09/05/2019 Generated: 09/06/19 1:08 pm Comments DCP- Discharge Planning Updated by [id number]: William Hernandez on 09/06/19 11:[address] Patient Name: AMARI MACHADO Encounter No: [id number] : 1940 Primary Insurance: MEDICARE A & B Anticipated DC Date: 09-06-2019 Planned Disposition: Inpatient Rehab External Planned Provider: [facility] DCP follow-up note: CM SPOKE TO BEDSIDE NURSE WHO INFORMED CM THAT PT IS NOT SAFE FOR WHEELCHAIR OR CAR TRANSPORTATION, WILL REQUIRE AMBULANCE. CM CALLED RENAY AT [facility], VERIFIED THEY ARE ACCEPTING TODAY, ROOM 305. CM FAXED DISCHARGE INFORMATION TO [facility] AT [phone]. CM CALLED LATRICIA MACHADO, NOTIFIED VIA PHONE. CM SPOKE TO DAUGHTER IN LAW, MICHAEL MACHADO IN ROOM. BOTH PT AND FAMILY IN AGREEMENT WITH DISCHARGE TO [facility] TODAY. NURSE REPORT TO BE CALLED TO [facility] AT [phone]. PT TO TRANSPORT VIA AMBULANCE. Remelt Pan Tank Operator: William Hernandez DCP- Discharge Planning Updated by [id number]: William Hernandez on 09/05/19 4:[address] Patient Name: AMARI MACHADO Admission Status: ER Accout number: [id number] Admission Date: 09-02-2019 : 1940 Admission Diagnosis: Attending: MARTI, Current LOS: 3 Anticipated DC Date: 09-06-2019 Planned Disposition: Inpatient Rehab Primary Insurance: MEDICARE A & B PLANNED EXTERNAL PROVIDER; [facility] Discharge Planning Comments: CM RECEIVED CALL FROM RENAY OF [facility], THEY WILL ACCEPT PT 09-06-19, [facility] WILL NOT PROVIDE TRANSPORTATION; RENA[facility] SUGGESTED THAT IF FAMILY CAN TRANSPORT, THEY CAN ASSIST WITH GETTING PT OUT OF CAR AT THE REHAB. CM TO FOLLOW UP WITH FAMILY REGARDING TRANSPORTATION. FOR DISCHARGE 09-06-19, FAX DISCHARGE INFORMATION TO [facility] AT [phone], NURSE REPORT TO BE CALLED TO [facility] AT [phone]. FAMILY TO TRANSPORT IF PT IS ABLE TO SIT SAFELY FOR DURATION OF APPROXIMATELY 2 HOUR TRANSPORT TO [facility]. Remelt Pan Tank Operator: William Hernandez DCP- Discharge Planning Updated by [id number]: Lyn Olivares on 09/05/19 3:[address] Patient Name: AMARI MACHADO Admission Status: ER Accout number: [id number] Admission Date: 09-02-2019 : 1940 Admission Diagnosis: Attending: MARTI, Current LOS: 3 Anticipated DC Date: Planned Disposition: Inpatient Rehab Primary Insurance: MEDICARE A & B Discharge Planning Comments: CM met with patient to complete initial dc planning assessment. The patient is confused and partially responsive. Called [facility] for working phone number for the patient family. CM educated patient granddaughter (Latricia) on the CM role and verbal consent given by family to complete assessment. CM verified patient's address, phone number, and emergency contact phone numbers. Patient is currently in home hospice with [facility], but would like to go to the rehab in [place] before going home and resuming hospice. LAINA form signed by patient for [facility]. Signed form placed in chart and signed form given to patient. Patient denied further known discharge needs at this time. CM will continue to follow and will assist as needed with dc plans/needs. IMM delivered, explained, signed by the patient, and placed in his chart. Signed form also left with patient. Remelt Pan Tank Operator: Lyn Olivares DCPIA - Discharge Planning Initial Assessment Updated by [id number]: William Hernandez on 09/06/19 11:41 am * Is the patient Alert and Oriented? No * How many steps to enter\exit or inside your home? 2/0 * PCP [place] * [facility] * Preadmission Environment [facility]ospice * Facility Name [facility] * ADLs Total Dependent * Equipment Bedside [facility] Bed Nebulizer Oxygen Rolling Walker Shower Chair Wheelchair * List name and contact numbers for known caregivers / representatives who currently or will assist patient after discharge: Khai Machado, Son and Dtr in Law, Latricia Machado, granddaughter, * Verbal permission to speak to the caregivers and representatives has been obtained from the patient. Yes * Community resources currently utilized [facility] * Please name any agencies selected above. [facility] * Additional services required to return to the preadmission environment? Yes * Can the patient safely return to the preadmission environment? No * Has this patient been hospitalized within the prior 30 days at any hospital? No Coverage Notice Reviewer: [id number] Colton Olivares Notice Issued Date-Time: 09/05/2019 14:13 Notice Type: IM Discharge Notice Notice Delivered To: Family Member Relationship to Patient: dadarryl Manager Alliance Name: Latricia Delivery Method: HAND - Hand Delivered Mai Days: Prior Verbal Notification: Recipient Understood Notice: Yes Recipient Signature: Yes Med Rec Note Co-signed by Attending: Coverage Notice Comment: IMM delivered, explained, signed by the patient, and placed in his chart. Signed form also left with patient. Reviewer: [email or web address] Colton Olivares Notice Issued Date-Time: 09/05/2019 14:13 Notice Type: Patient Choice Letter Notice Delivered To: Family Member Relationship to Patient: daughter Manager Alliance Name: Latricia Delivery Method: HAND - Hand Delivered Mai Days: Prior Verbal Notification: Recipient Understood Notice: Yes Recipient Signature: Yes Med Rec Note Co-signed by Attending: Coverage Notice Comment: [facility] Last DP export: 09/06/19 10:47 a Patient Name: AMARI MACHADO Page [id number] at 1208 All edits/amendments must be made on the electronic document DICTATION DATE: 09/06/19 1208 TOOL CRIB MANAGER: NEAL 09/06/19 1208 RPT#: [id number] DC DATE: STATUS: ADM IN [facility] [address] [place] [address] END OF REPORT
--- NOTE | 2019-09-06 13:25 | NUR ---
DC GIVEN TO [id number]
--- NOTE | 2019-09-06 14:50 | NUR ---
DC TO REHAB PER AMBULANCE
[2019-09-10 17:08] LABS: AEROBE ID Final report (()); RESULT 1 Escherichia coli (())
== END 2019-09-06 14:51 | DRG 871 ==
LOC: D.ER 19:24 → D.M2 19:55
PROVIDERS: Family Medicine; Internal Medicine Nephrology; ADMIT Family Medicine; ATTEND Family Medicine
DX: A41.9 Sepsis, unspecified organism (principal); I21.A1 Myocardial infarction type 2; N39.0 Urinary tract infection, site not specified; N17.9 Acute kidney failure, unspecified; J44.9 Chronic obstructive pulmonary disease, unspecified; E11.9 Type 2 diabetes mellitus without complications; G20 Parkinson's disease; D50.9 Iron deficiency anemia, unspecified; D69.6 Thrombocytopenia, unspecified